=== PATIENT | male | born 1955 | race Caucasian/White ===

== ENCOUNTER 2016-04-07 09:54 | Inpatient (IN) | payer MEDICARE ==
[2016-04-07] VITALS (16 sets, daily range): BP systolic 111–152; BP diastolic 75–99; BMI 18.9
[~2016-04-07] VITALS: Ht 188 cm; Wt 69.0 kg
[~2016-04-07 09:54] MED LIST: COREG25 MG PO; CYCLOBENZAPRINE10 MG PO; HYDRALAZINE HCL50 MG PO; LASIX40 MG PO; LIPITOR80 MG PO; LOTRISONE CREAM45 GM TOPICAL; NORVASC10 MG PO; PHOSLO667 MG PO; SENNA LAXATIVE8.6 MG PO; SPIRIVA18 MCG INH; SYMBICORT 16010.2 GM INH
--- NOTE | 2016-04-07 11:20 | NUR ---
REC'D INTO ROOM 2302 FROM AMBULANCE FROM [place]. HOOKED UP TO CM. HR 98 NS. BP 149/92. SATTING 94% ON RA.NO DISTRESS.
--- NOTE | 2016-04-07 11:57 | NUR ---
RIGHT FOREARM PIV.SL.
[2016-04-07 12:26] LABS: BASOPHILS 0.4 % (0.0-2.0); EOSINOPHILS 1.2 % (0-7); HEMATOCRIT 27.7 % (42.0-54.0); HEMOGLOBIN 8.5 g/dL (13.5-17.5); IMMATURE GRANULOCYTES 0.4 % (0-5); LYMPHOCYTES 5.5 % (15-50); MCH 34.1 pg (26.0-34.0); MCHC 30.7 g/dL (31.0-37.0); MCV 111.2 fL (80.0-100.0); MEAN PLATELET VOLUME 10.5 fL (7.4-10.4); MONOCYTES 10.1 % (2-11); NEUTROPHILS 82.4 % (40-80); PLATELET COUNT 191 10x3/uL (130-400); RBC 2.49 10x6/uL (4.20-6.10); RDW 20.5 % (11.5-14.5); WBC 11.2 10x3/uL (4.8-10.8)
--- NOTE | 2016-04-07 12:36 | NUR ---
RESTING WITH EYES CLOSED. VSS. NO S/S OF ACTIVE GI BLEED.
--- NOTE | 2016-04-07 12:39 | NUR ---
AROUSES PROPERLY TO VOICE. LET UPPER ARM A/V FISTULA. THRILL AND BRUIT PRESENT. CD&I. SCD'S ARE ON.
[2016-04-07 13:00] LABS: ALBUMIN 2.6 g/dL (3.4-5.0); ANION GAP 17.3 mmol/L (8-16); BILIRUBIN - TOTAL 1.2 mg/dL (0.2-1.3); CALCIUM 10.2 mg/dL (8.5-10.1); CARBON DIOXIDE 27.2 mmol/L (21.0-32.0); CREATININE - SERUM 6.7 mg/dL (0.6-1.3); PHOSPHOROUS 3.7 mg/dL (2.5-4.9); PROTEIN - SERUM 5.9 g/dL (6.4-8.2)
[2016-04-07 13:01] LABS: POTASSIUM - SERUM 6.5 mmol/L (3.5-5.1)
--- NOTE | 2016-04-07 13:30 | NUR ---
C/O ITCHING. BENADRYL GIVEN.
[2016-04-07 13:33] LABS: HEMATOCRIT 25.5 % (42.0-54.0); HEMOGLOBIN 7.9 g/dL (13.5-17.5)
--- NOTE | 2016-04-07 16:17 | NUR ---
REC'D REPORT ON PT AND RESUMED WITH POC. PT RESTING IN BED, DENIES NEEDS AT THIS TIME. HD AT BEDSIDE IN PROGRESS.
--- NOTE | 2016-04-07 16:17 | NUR ---
REPORT GAVE TO MARLIN RAMOS RN AND SHE ASSUMED CARE.
--- NOTE | 2016-04-07 17:40 | NUR ---
CONSENT OBTAINED VIA PT.
--- NOTE | 2016-04-07 19:40 | NUR ---
RECEIVED PATIENT AWAKE IN BED WATCHING TV, ASSESSMENT COMPLETE PER FLOWSHEET. PATIENT IS AO X4, DEMEANOR IS PLEASANT. EYES PERRLA @ 3MM WITH BRISK RESPONSE, SCLERA IS WHITE. ORAL/NASAL MUCOSA IS MOIST AND INTACT, TONGUE IS MIDLINE. S1/S2 NOTED WITH PATIENT NSR ON TELEMETRY, RATE IS RYTHMIC AND REGULAR. LUNG SOUNDS ARE CLEAR WITH EXPIRATORY WHEEZE NOTED BILATERAL UPPER AND DIMINISHED LOWER, BREATHING IS EVEN AND EFFORTLESS ON ROOM AIR. ABDOMEN IS SOFT AND NON-TENDER, BOWEL SOUNDS ACTIVE X4. PATIENT IS CURRENTLY ANURIC WITH NO OUTPUT TODAY, PATIENT ABLE TO USE BEDPAN/COMMODE TO VOID. ALL PULSES PALPABLE, PATIENT HAS FISTULA NOTED IN L A/C WITH THRILL/BRILL NOTED. WELDING TECHNICIAN/PEDAL STRENGTH IS EQUAL AND BILATERAL, CAP REFILL <3 SEC. PATIENT STATES HE HAS "5 DEGENERATIVE DISKS" LOCATED UPPER CERVICAL/THORACIC VERTEBRAE, C/O CHRONIC PAIN IN AREA. PAIN RATED 2/10 CURRENTLY, NO MEDS NEEDED AT THIS TIME. PATIENT DENIES OTHER NEEDS AT THIS TIME, ALL VSS AND WILL CONTINUE TO MONITOR.
[2016-04-07 21:47] LABS: HEMATOCRIT 25.7 % (42.0-54.0); HEMOGLOBIN 7.9 g/dL (13.5-17.5)
--- NOTE | 2016-04-07 22:10 | NUR ---
CALLED DR OVIEDO WITH H&H RESULTS PER REQUEST, ORDERS GIVEN TO TRANFUSE 1 UNIT PRBC FOR RESULT OF 11/25. ORDER READ BACK AND CONFIRMED, WAITING FOR BLOOD BANK TO NOTIFY WHEN READY.
--- NOTE | 2016-04-07 23:00 | NUR ---
REASSESSMENT COMPLETE PER FLOWSHEET, PATIENT RESTING IN BED WITH EYES CLOSED. BREATHING IS EVEN AND UNLABORED, OXYGEN SAT 94% ON ROOM AIR. PATIENT HAS SMALL SCABS/SORES ALL OVER BODY, C/O PAIN IN NECK FROM DEGENERATIVE VERTEBRAE. PATIENT HAS NO OUTPUT FOR THE DAY, NO C/O OF BOWEL/BLADDER PAIN OR DISCOMFORT. PATIENT DENIES FURTHER NEEDS AT THIS TIME, WILL CONTINUE TO MONITOR.
[2016-04-08] VITALS (22 sets, daily range): BP systolic 116–152; BP diastolic 66–91; Ht 188 cm; Wt 69.0 kg
--- NOTE | 2016-04-08 01:50 | NUR ---
PRBC TRANSFUSION STARTED, PATIENT AFEBRILE AND ALL VSS. PATIENT DENIES PAIN OR OTHER NEEDS AT THIS TIME, WILL CONTINUE TO MONITOR.
--- NOTE | 2016-04-08 03:00 | NUR ---
REASSESSMENT COMPLETE PER FLOWSHEET, PATIENT RESTING IN BED WITH EYES OPEN. BREATHING IS EVEN AND UNLABORED, OXYGEN SAT IS 94% ON RA. PATIENT RECEIVING 1 UNIT PRBC TRANDUSING, NO C/O PAIN OR FEBRILE REACTION. PATIENT HAS BEEN NPO SINCE MIDNIGHT, STATES "CAN'T WAIT TILL I GET REAL FOOD". PATIENT DENIES PAIN OR OTHER NEEDS AT THIS TIME, ALL VSS AND WILL CONTINUE TO MONITOR.
--- NOTE | 2016-04-08 05:10 | NUR ---
PRBC TRANSFUSION COMPLETE, PATIENT IS AFEBRILE AND NO C/O PAIN. ALL VSS AND WILL CONTINUE TO MONITOR FOR DELAYED REACTION.
[2016-04-08 06:04] LABS: BASOPHILS 0.5 % (0.0-2.0); EOSINOPHILS 2.2 % (0-7); HEMOGLOBIN 8.5 g/dL (13.5-17.5); IMMATURE GRANULOCYTES 0.2 % (0-5); LYMPHOCYTES 8.9 % (15-50); MCH 33.2 pg (26.0-34.0); MCHC 31.5 g/dL (31.0-37.0); MEAN PLATELET VOLUME 10.2 fL (7.4-10.4); MONOCYTES 9.5 % (2-11); NEUTROPHILS 78.7 % (40-80); PLATELET COUNT 157 10x3/uL (130-400); RBC 2.56 10x6/uL (4.20-6.10); RDW 21.4 % (11.5-14.5); WBC 9.2 10x3/uL (4.8-10.8)
--- NOTE | 2016-04-08 06:10 | NUR ---
PATIENT C/O NAUSEA, PRN ZOFRAN GIVEN IV. NO DISCOMFORT OR PAIN NOTED, ALL VSS AND WILL CONTINUE TO MONITOR.
[2016-04-08 06:12] LABS: INR 0.96 (0.85-1.17); PROTIME 12.6 SECONDS (11.6-15.0)
[2016-04-08 06:29] LABS: MCV 105.5 fL (80.0-100.0)
[2016-04-08 06:39] LABS: % SATURATION 96 % (15-55); IRON 232 ug/dl (35-150); TOTAL IRON BIND CAPACITY 240 ug/dl (260-445)
[2016-04-08 06:41] LABS: UNSAT IRON BIND CAPACITY 8 ug/dl (150-375)
[2016-04-08 06:47] LABS: ALBUMIN 2.4 g/dL (3.4-5.0); ANION GAP 17.9 mmol/L (8-16); BILIRUBIN - TOTAL 1.3 mg/dL (0.2-1.3); CARBON DIOXIDE 25.8 mmol/L (21.0-32.0); CREATININE - SERUM 5.6 mg/dL (0.6-1.3); POTASSIUM - SERUM 5.7 mmol/L (3.5-5.1)
--- NOTE | 2016-04-08 09:10 | NUR ---
SCD'S REMOVED PER PATIENT REQUEST.
--- NOTE | 2016-04-08 09:15 | NUR ---
MORNING MEDICATION PROVIDED WITH A SIP OF WATER.
--- NOTE | 2016-04-08 11:15 | NUR ---
PT C/O ITCHING AND REQUESTED BENADRYL. IV BENADRYL GIVEN.
--- NOTE | 2016-04-08 12:18 | NUR ---
PT C/O PAIN IN HIS BACK AND HIS NECK. WANTS A SPINE DOCTOR OR A NEUROLOGIST. SAYS HE HAS SEEN GYPSY IN THE PAST. DOES NOT CURRENTLY SEE SOMEONE REGULARLY FOR HIS PAIN.
[2016-04-08 13:32] LABS: HEMATOCRIT 26.7 % (42.0-54.0); HEMOGLOBIN 8.4 g/dL (13.5-17.5)
--- NOTE | 2016-04-08 13:50 | NUR ---
SPOKE WITH DR CANTU. IF PT EGD LATER COMES BACK OK, AND GI IS COMFORTABLE WITH PATIENT MOVING TO FLOOR, HE IS OK FOR PT TO MOVE TO FLOOR.
--- NOTE | 2016-04-08 13:52 | NUR ---
PT BROUGHT UP SMALL CARRY-ON SIZE SUITCASE WITH PT BELONGINGS IN IT. NO MEDICATIONS FOUND IN IT, BUT 2 PACKS OF UNOPENED GREEN LABEL PALL MALL CIGS FOUND. PT LABEL PLACED ON PACKS AND THEN LOCKED UP IN PATIENT'S MEDICATION CASSETTE. PT WAS MADE AWARE THEY WERE REMOVED FROM HIS BELONGINGS.
--- NOTE | 2016-04-08 16:48 | NUR ---
PT OFF FLOOR TO HAVE EGD.
--- NOTE | 2016-04-08 18:40 | NUR ---
DIALYSIS NURSE HERE TO DO DIALYSIS ON PT. PT STILL IN GI LAB.
--- NOTE | 2016-04-08 19:07 | NUR ---
PT RETURNED TO ROOM FROM GI LAB.
--- NOTE | 2016-04-08 19:30 | NUR ---
RECIEVED PATIENT RETURNED FROM EGD, PATIENT IS SLIGHTLY DAZED AND A LITTLE LETHARGIC. ASSESSMENT COMPLETED PER FLOWSHEET, PATIENT IS AO X4, PATIENT IS LETHARGIC BUT ANSWERS APPROPRIATELY. EYES PERRLA @ 3MM WITH BRISK RESPONSE, SCLERA IS WHITE. PATIENT OXYGEN SAT IS 96% ON 2L VIA NC, ORAL/NASAL MUCOSA IS MOIST AND INTACT. S1/S2 NOTED WITH PATIENT NSR ON TELEMETRY, RATE IS RYTHMIC AND REGULAR. LUNG SOUNDS CLEAR BILATERAL UPPER WITH SLIGHTLY DIMINISHED LOWER, BREATHING IS EVEN AND EFFORTLESS. ABDOMEN IS ROUND AND SOFT, BOWEL SOUNDS ACTIVE X4. PATIENT IS ANURIC BUT ABLE TO VOID INTO URINAL, NO SWELLING OR REDNESS NOTED. ALL PULSES PALPBALE WITH NO WEAKNESS NOTED IN EXTREMITIES. PATIENT HAS A/V FISTULA FOR HD NOTED IN L A/C, BRUIT AND THRILL NOTED. 20G PIV LOCATED R FOREARM, PATENT WITH FLUIDS INFUSING. PATIENT STATES THAT "HE IS STARVING", SANDWICH TRAY PROVIDED. PATIENT CURRENTLY UNDERGOING DIALYSIS, STARTED 1944. PATIENT DENIES PAIN OR OTHER NEEDS AT THIS TIME, ALL VSS AND WILL CONTINUE TO MONITOR.
--- NOTE | 2016-04-08 22:58 | NUR ---
REASSESSMENT COMPLETE PER FLOWSHEET, PATIENT RESTING IN BED WITH EYES CLOSED. DIALYSIS JUST COMPLETED, 4L OF FLUID REMOVED & 43.8 L OF BLOOD CYCLED. ENDING VITALS HR-89, BP-116/72, R-16, T-97.8. BREATHING IS EVEN AND EFFORTLESS, OXYGEN SAT IS 98% ON 2L VIA NC. PATIENT IS "EXHAUSTED" AFTER DIALYSIS, NO FURTHER NEEDS AT THIS TIME. ALL VSS AND WILL CONTINUE TO MONITOR.
[2016-04-09] VITALS (16 sets, daily range): BP systolic 110–141; BP diastolic 59–85
--- NOTE | 2016-04-09 01:00 | NUR ---
PATIENT RESTING IN BED WITH EYES OPEN, PATIENT STATED HE WAS HUNGRY AND GIVEN SANDWICH TRAY. BEDSIDE COMMODE PLACED IN PATIENT ROOM, PATIENT ABLE TO AMBULATE WITHOUT ASSISTANCE. DENIES PAIN OR OTHER NEEDS AT THIS TIME, ALL VSS AND WILL CONTINUE TO MONITOR.
--- NOTE | 2016-04-09 03:01 | NUR ---
REASSESSMENT COMPLETE PER FLOWSHEET, PATIENT RESTING IN BED WITH EYES CLOSED. PATIENT WAS ABLE TO AMBULATE TO CHAIR AND BACK TO BED ON OWN, GAIT IS UPRIGHT AND STEADY. BREATHING IS EVEN AND EFFORTLESS, OXYGEN AT IS 94 % ON 2L VIA NC. PATIENT DENIES PAIN OR OTHER NEEDS AT THIS TIME, ALL VSS AND WILL CONTINUE TO MONITOR.
--- NOTE | 2016-04-09 05:10 | NUR ---
PATIENT RESTING IN BED WITH EYES CLOSED, BREATHING IS EVEN AND EFFORTLESS. PATIENT DENIES PAIN OR OTHER NEEDS AT THIS TIME, STATES HE "JUST NEEDS TO SLEEP". ALL VSS AND WILL CONTINUE TO MONITOR.
[2016-04-09 07:08] LABS: HEMATOCRIT 28.8 % (42.0-54.0)
--- NOTE | 2016-04-09 07:33 | NUR ---
SHIFT ASSESSMENT COMPLETE. SEE FLOWSHEET FOR FINDINGS. PT IS AWAKE, SITTING UP IN BED EATING BREAKFAST. VOICES NO COMPLAINTS OTHER THAN WANTING TO GET OUT OF ICU. PT IS ON ROOM AIR. NO SCD'S IN USE.
--- NOTE | 2016-04-09 07:53 | NUR ---
CALLED DR CANTU AFTER READING HIS NOTE THIS MORNING. NO ORDER IN FOR TRANSFER TO FLOOR NOTED. ALSO NOTE MENTIONS NO LABS TODAY RECEIVED. ASKED HIM IF HE WANTED LABS DRAWN, THERE WAS AND H&H DONE THIS MORNING. REVIEWED H&H VALUES, NO NEED FOR ADDITIONAL LABS AT THIS TIME OK TO PUT IN ORDER FOR TRANSFER.
[2016-04-09 08:21] LABS: ALPHA FETOPROTEIN -(TUMOR MRK) 6.1 ng/mL (0.0-8.3)
--- NOTE | 2016-04-09 09:05 | NUR ---
PT C/O NOSE BLEEDING, LEFT NARE. TISSUE PROVIDED, PRESSURE HELD. BLEEDING SUBSIDED WITHIN A COUPLE OF MINUTES.
--- NOTE | 2016-04-09 10:22 | NUR ---
PT RESTING IN BED WATCHING TELEVISION. AWAITING TRANSFER TO FLOOR.
--- NOTE | 2016-04-09 11:45 | NUR ---
PT C/O NAUSEA. ZOFRAN GIVEN. ASKED WHY NOT PHENERGAN. TOLD HIM WE DON'T HAVE IT ON HIS ORDER AND CAN'T USE IT. WANTED TO KNOW WHAT IS GIVEN FOR PAIN THEN WITH ZOFRAN. TOLD HIM NOTHING. HE THEN STARTS HEAVING AND ACTING LIKE HE IS GOING TO THROW UP AND SPITS IN TRASH CAN I LEAVE ROOM. NO THROWING UP INVOLVEMENT AT THIS TIME.
--- NOTE | 2016-04-09 11:56 | NUR ---
WALKED BY ROOM TO CHECK ON PATIENT. IS BACK TO EATING ON HIS HAMBURGER. NO DISTRESS NOTED.
--- NOTE | 2016-04-09 12:15 | NUR ---
PT NOW ASKING FOR PAIN MEDICATION. HAS NONE ON HIS EMAR. SAYS HIS STOMACH HURTS.
--- NOTE | 2016-04-09 12:57 | NUR ---
SPOKE WITH DR CANTU. ORDERS GIVEN FOR PHENERGAN AND BUPRENEX
--- NOTE | 2016-04-09 13:06 | NUR ---
PT GIVEN PHENERGAN PO AND BUPRENEX. PT YELLING OUT AND 'HOWLING' ASKED HIM TO PLEASE CONTAIN HIS NOISE. APOLOGIZES AND ATTEMPTS TO REDUCE NOISE. HR 87, BP 127/74. SECOND BP READING 104/84.
--- NOTE | 2016-04-09 13:12 | NUR ---
PT STILL YELLING OUT. SAYS MEDICATION DID NOT HELP. EXPLAINED TO HIM IT WAS NOT GOING TO BE IMMEDIATE RESULTS. ASKED HIM AGAIN TO STOP YELLING OUT THAT IT IS DISTURBING THE OTHER PATIENTS.
--- NOTE | 2016-04-09 13:25 | NUR ---
NO MORE YELLING. PT RESTING ON RIGHT SIDE. HR 84. RESPIRATIONS EVEN. EYES CLOSED
[2016-04-09 13:34] LABS: HEMATOCRIT 27.3 % (42.0-54.0); HEMOGLOBIN 8.6 g/dL (13.5-17.5)
--- NOTE | 2016-04-09 13:47 | NUR ---
PT SITTING UP IN BED TALKING ON CELL PHONE AT THIS TIME. VOICE IS CALM. NO DISTRESS NOTED. NO COMPLAINTS VOICED
--- NOTE | 2016-04-09 14:06 | NUR ---
REPORT CALLED TO RECEIVING RN. PT 2 PACKS OF PALL MALL CIGARETTES GIVEN BACK TO HIM. WITNESSED BY JORDAN MARIE.
[2016-04-09 14:23] LABS: FOLATE (FOLIC ACID) - SERUM 14.5 ng/mL (>3.0)
--- NOTE | 2016-04-09 14:26 | NUR ---
PT TRANSFERRED TO [facility] FLOOR ROOM 5076. OFFERED TO CALL TO UPDATE ON MOVE, PT SAID HE HAD ALREADY CALLED HER TO LET HER KNOW THAT HE WAS MOVING.
--- NOTE | 2016-04-09 14:40 | NUR ---
REC'D PT FROM ICU NURSE HALLE. PT IS ALERT AND ORIENTED. VSS. APPLIED NC @2L. ORIENTED PT TO ROOM AND FLOOR. PT DENIES ANY QUESTIONS OR NEEDS. CL IN REACH. WILL CTM.
--- NOTE | 2016-04-09 20:28 | NUR ---
HS MEDS GIVEN WITH FRESH ICE WATER, PT ASKING WHY HE ISNT ALLOWED TO GO OUT SIDE PT STATES THAT WE ARE HOLDING HIM HOSTAGE AND AGAINST HIS WILL. EXPAININED TO PT THAT WE ARE NOT FORCING HIM TO STAY, BUT THAT WE SUGGEST TO ALL PTS THAT THEY DO NOT GO OUT TO SMOKE WHILE THEY ARE A PT HERE, WE ARE A NON SMOKING FACILITY AND THE PTS CANT BE OBSERVED IF THEY LEAVE THE GROUNDS TO SMOKE AND IT BECOMES A SAFETY ISSUE. OFFERED TO CALL AND GET PT A NICOTINE PATCH, PT DECLINED STATING THAT IT WILL ONLY MAKE HIM SICKER. WILL CONT TO MONITOR.
[2016-04-09 21:12] LABS: HEMATOCRIT 30.9 % (42.0-54.0); HEMOGLOBIN 9.7 g/dL (13.5-17.5)
[2016-04-10 01:22] VITALS: BP 129/75
--- NOTE | 2016-04-10 01:52 | NUR ---
BUPRENEX 0.1 MG AND BENADRYL 25 MG GIVEN FOR C/O PAIN AND ITCHING.
--- NOTE | 2016-04-10 03:03 | NUR ---
RESTING WITH EYES CLOSED, RESPERATIONS EVEN, NO S/S DISTRESS NOTED.
[2016-04-10 05:51] LABS: BASOPHILS 0.7 % (0.0-2.0); EOSINOPHILS 2.1 % (0-7); HEMATOCRIT 30.7 % (42.0-54.0); HEMOGLOBIN 9.5 g/dL (13.5-17.5); IMMATURE GRANULOCYTES 0.1 % (0-5); LYMPHOCYTES 11.2 % (15-50); MCHC 30.9 g/dL (31.0-37.0); MCV 106.6 fL (80.0-100.0); MEAN PLATELET VOLUME 10.6 fL (7.4-10.4); MONOCYTES 6.7 % (2-11); NEUTROPHILS 79.2 % (40-80); PLATELET COUNT 171 10x3/uL (130-400); RBC 2.88 10x6/uL (4.20-6.10); RDW 20.4 % (11.5-14.5)
[2016-04-10 06:19] LABS: CALCIUM 8.4 mg/dL (8.5-10.1); CARBON DIOXIDE 27.9 mmol/L (21.0-32.0); CREATININE - SERUM 6.9 mg/dL (0.6-1.3); PHOSPHOROUS 7.7 mg/dL (2.5-4.9); POTASSIUM - SERUM 4.9 mmol/L (3.5-5.1)
[2016-04-10 06:27] VITALS: BP 118/62
--- NOTE | 2016-04-10 07:47 | NUR ---
RECEIVED PT LYING ON RIGHT SIDE WITH EYES CLOSED RESTING QUIETLY. RESPIRATIONS EVEN, NON-LABORED. NO ACUTE DISTRESS NOTED AT THIS TIME. BED LOW. PHONE AND CALL LIGHT IN REACH. SIDE RAILS UP X2.
[2016-04-10 08:00] VITALS: BP 135/77
--- NOTE | 2016-04-10 08:30 | NUR ---
PT SITTING UP ON SIDE OF THE BED. AAO X3. ASSESSMENT COMPLETE. SALINE LOCK NOTED TO RIGHT FOREARM. RLL LUNG SOUNDS DIMINSHED, EXPIRATORY WHEEZES NOTED TO RUL, RML, LLL, AND TRINIDAD. BOWEL SOUNDS ACTIVE X4 QUADRENTS. PT IS A LEFT ARM RESERVE R/T FISTULA IN UPPER ARM. PT HAS DIALYSIS MWF AND SHOULD HAVE IT DONE TODAY. PT REQUESTS A SPOON AT THIS TIME. DENIES OTHER NEEDS. BED LOW. PHONE AND CALL LIGHT IN REACH. SIDE RAILS UP X2.
--- NOTE | 2016-04-10 09:33 | NUR ---
AM MEDS GIVEN. ADMINISTERED BUPRENORPHINE IVP. FLUSHED SALINE LOCK. PT DENIES NEEDS AT THIS TIME. BED LOW. PHONE AND CALL LIGHT IN REACH. SIDE RAILS UP X2.
--- NOTE | 2016-04-10 11:38 | PRO ---
PATIENT:YOHANA VALENCIA MEDICAL RECORD: [id number] : 55 LOCATION:D.M2 D.2136 ADMISSION DATE: 04/07/16 PROCEDURE PERFORMED BY: KWAME ARROYO MD DATE OF PROCEDURE: 04/08/2016 OBSTETRICS NURSE PRACTITIONER: Kwame Arroyo MD PROCEDURE: EGD with biopsy and cauterization using the gold probe of the duodenal ulcer. INDICATION: The patient is a 60-year-old white male with a reported history of chronic active hepatitis B and C from past IV drug use, past alcohol abuse, coronary artery disease, cardiac arrhythmias with valvular heart disease, status post aortic valve replacement, end-stage renal disease, on hemodialysis, was admitted with hematemesis and melena. He has no past history of any GI bleeding. It is unknown whether he has a cirrhosis or not. Apparently, he had drunk alcohol in 20 years or so. It is also unclear whether he has never had an endoscopy in the past. LABORATORY DATA: Lab on admission revealed a BUN of 75 and creatinine of 6.7. Total bilirubin 1.2, AST 36, ALT 85, alkaline phosphatase 151, and albumin 3.6. White count 11,000, hematocrit 27, MCV of 111, and platelet count 191. B12 and folate levels are pending. He is now for EGD. PREMEDICATION: TIVA for anesthesia. He also received Ancef and gentamicin prophylactically for his heart valve. INSTRUMENT: Olympus video gastroscope. FINDINGS: The endoscope was passed through the oropharynx to the second portion of the duodenum without difficulty. The esophagus was essentially normal other than 1 small 6-7 mm ulceration right at the GE junction, actually just distal to it of unclear etiology, rule out for reflux or possibly even pill esophagitis. This was a small circular ulcer and it had no stigmata of recent bleeding. Also, of note was that there were no esophageal varices. The stomach was entered. It was remarkable for moderate gastritis in the mid body of the stomach, which looked almost like atrophic gastritis, more so than portal hypertensive gastropathy. Biopsies were obtained from this area and from the antrum to rule out H. pylori, atrophic gastritis, etc. There was no blood in the stomach. The duodenum was entered and was in the bulb, it was clear; however, in the second portion of duodenum, there was a definite large 2-cm ulceration on the anterior wall with a definite flat pigmented spot/visible vessel. It was not bleeding at time of endoscopy. I went ahead and cauterized with gold probe and 30 joules with good results. The patient tolerated the procedure well without any immediate complication. IMPRESSION: 1. Large duodenal ulcer with stigmata of recent bleeding in the second portion of the duodenum, now status post cauterization with a gold probe as noted above, rule out Helicobacter pylori infection. 2. Moderate gastritis involving the body of the stomach, rule out chronic atrophic gastritis. PROCEDURE NOTE [id number] YOHANA VALENCIA 3. Small punctate ulcer right at the GE junction or just below it, rule out pill esophagitis versus reflux disease. 4. No evidence of esophageal or gastric varices. 5. Otherwise, normal esophagogastroduodenoscopy. RECOMMENDATIONS: 1. Follow up biopsy results. 2. Absolutely no aspirin or NSAIDs. 3. Protonix 40 mg p.o. b.i.d. to take indefinitely. 4. Advance diet as tolerated. 5. Follow B12 and folate levels. TRANSINT:[id number] Voice Confirmation ID: [id number] DOCUMENT ID: [id number] KWAME ARROYO MD at 1138 CC: MELISSA CANTU MD [id number] DICTATION DATE: 04/08/16 185 ROTARY VENEER MACHINE OPERATOR: 04/09/16 0201 [facility] IN [place] [id number] [place] [id number]
[2016-04-10 11:42] VITALS: BP 123/62
--- NOTE | 2016-04-10 12:33 | NUR ---
PT SITTING UP ON SIDE OF BED TALKING ON CELL PHONE. DENIES NEEDS AT THIS TIME. BED LOW. PHONE AND CALL LIGHT IN REACH. SIDE RAILS UP X2.
--- NOTE | 2016-04-10 13:19 | NUR ---
CASE MANAGEMENT AT BEDSIDE WITH PT. NO NEEDS NOTED AT THIS TIME.
[2016-04-10 13:57] LABS: HEMATOCRIT 31.6 % (42.0-54.0); HEMOGLOBIN 9.8 g/dL (13.5-17.5)
--- NOTE | 2016-04-10 15:06 | NUR ---
ADMINISTERED FLEXERIL PO. PT DENIES NEEDS AT THIS TIME. BED LOW. PHONE AND CALL LIGHT IN REACH. SIDE RAILS UP X2.
[2016-04-10 16:00] VITALS: BP 122/72
--- NOTE | 2016-04-10 16:00 | NUR ---
PT REQUESTS MEDICATION FOR PAIN 11/10. ADMINISTERED BUPRENEX IVP. FLUSHED IV. PT DENIES FURTHER NEEDS. BED LOW. PHONE AND CALL LIGHT IN REACH. SIDE RAILS UP X2.
--- NOTE | 2016-04-10 16:19 | NUR ---
PT RECEIVING DIALYSIS. DENIES NEEDS AT THIS TIME.
--- NOTE | 2016-04-10 16:22 | NUR ---
Patient Name: YOHANA VALENCIA Admission Status: Elective Accout number: [id number] Admission Date: 04-07-2016 : 1955 Admission Diagnosis:HEMATEMESIS Attending: ANEL Current LOS: 3 Anticipated DC Date: 04-11-2016 Planned Disposition: [facility] Facility Primary Insurance: MEDICARE A & B PLANNED EXTERNAL PROVIDER: [place], MEDICARE REHAB BED Discharge Planning Comments: * Is the patient Alert and Oriented? Yes 0 * How many steps to enter\exit or inside your home? 3 0 * PCP DR. MARVA HAQ 0 * Pharmacy [facility] IN [place] OR [facility] 0 * Preadmission Environment Home with Family 0 * ADLs Independent 0 * Equipment [facility] Bed Nebulizer Walker 0 * Other Equipment NO MEDICAL EQUIPMENT PROVIDER PREFERENCE 0 * List name and contact numbers for known caregivers / representatives who currently or will assist patient after discharge: RENITA MARRERO ISAAK, 0 * Community resources currently utilized Other 0 * Please name any agencies selected above. [facility], [facility], [place], M/W/F, 1115AM, MEDICAID TRANSPORT BUS TO AND FROM DIALYSIS 0 * Additional services required to return to the preadmission environment? No 0 * Can the patient safely return to the preadmission environment? Yes 0 * Has this patient been hospitalized within the prior 30 days at any hospital? No 0 CM MET WITH PT IN ROOM TO DISCUSS DISCHARGE PLANNING AND NEEDS. PT REPORTS LIVING AT HOME INDEPENDENTLY WITH HIS ISAAK. PT REPORTS HAVING ALL NEEDED MEDICAL EQUIPMENT AT HOME AND NO MEDICAL EQUIPMENT PROVIDER PREFERENCE. PT HAS NO OUTSIDE SERVICES ASSISTING IN THE HOME. PT GOES TO DIALYSIS IN [place] ON M//F SHCEDULE, TAKES [place]AT BUS. CM DISCUSSED AVAILABILITY OF HOME HEALTH, REHAB SERVICES AND MEDICAL EQUIPMENT. PT STATES HE NEEDS REHAB BEFORE HE GOES HOME AND WANTS A [facility] IN [place] SO THAT HE WILL BE CLOSE TO SERVICES HERE BEFORE GOING HOME. PT REPORTS HE HAS DISCUSSED THIS WITH HIS DIALYSIS CLINIC IN [place] AND TOLD HIM INITIALLY THEY WERE GOING TO HELP BUT HAVE DONE NOTHING. PT CALLED [facility] AND THEY TOLD PT THEY HAVE A BED AND ASKED THAT REFERRAL BE SENT TO THEM FOR SCREENING. PT REPORTS [facility] WILL PICK HIM UP FOR DISCHARGE HOME. IMPORTANT MESSAGE FROM MEDICARE PROVIDED AND EXPLAINED. CHOICE SIGNED FOR ANY NURSING FACILITY IN [place]. CM FAXED REFERRAL TO KRYSTIAN OF [facility], . TRACIE CALLED KRYSTIAN AT [phone], WHO WAS FAMILIAR WITH PT HE HAS CALLED [facility] WHO NOTIFIED HER TO EXPECT THE REFERRAL. CM WAITING ADMISSION DETERMINATION FROM [facility] FOR REHAB SERVICES. Maid Supervisor: Daniel Snow
--- NOTE | 2016-04-10 17:06 | NUR ---
ADMINISTERED PROTONIX PO. DENIES NEEDS AT THIS TIME.
--- NOTE | 2016-04-10 18:22 | NUR ---
PT REFUSED LASIX 80 MG PO. RECEIVING DIALYSIS AT THIS TIME. BED LOW. PHONE AND CALL LIGHT IN REACH. SIDE RAILS UP X2.
--- NOTE | 2016-04-10 18:45 | NUR ---
ZOFRAN GIVEN VIA DIALYSIS TO LEFT UPPER ARM FISTULA FOR NAUSEA. PT DENIES FURTHER NEEDS AT THIS TIME. BED LOW. PHONE AND CALL LIGHT IN REACH. SIDE RAILS UP X2.
--- NOTE | 2016-04-10 19:41 | NUR ---
RECEIVED REPORT, PT IS RECEIVING DIALYSIS IN ROOM, [place] ARM, IV-RFA-SL, 02-2L, PT IS UP AB JAKI, CALL LIGHT IN REACH, BED IS LOW, SRX2, WILL CONTINUE TO MONITOR
[2016-04-10 20:02] VITALS: BP 104/59
[2016-04-10 21:13] LABS: HEMATOCRIT 32.7 % (42.0-54.0); HEMOGLOBIN 10.2 g/dL (13.5-17.5)
[2016-04-11 01:11] VITALS: BP 96/41
[2016-04-11 04:36] VITALS: BP 115/42
--- NOTE | 2016-04-11 05:13 | NUR ---
SLEEPING, BED IS LOW, SRX2, CALL LIGHT IN REACH
[2016-04-11 05:25] LABS: BASOPHILS 0.3 % (0.0-2.0); EOSINOPHILS 0.3 % (0-7); HEMATOCRIT 26.4 % (42.0-54.0); HEMOGLOBIN 8.2 g/dL (13.5-17.5); IMMATURE GRANULOCYTES 0.2 % (0-5); LYMPHOCYTES 5.6 % (15-50); MCH 33.6 pg (26.0-34.0); MCHC 31.1 g/dL (31.0-37.0); MCV 108.2 fL (80.0-100.0); MEAN PLATELET VOLUME 10.9 fL (7.4-10.4); MONOCYTES 6.4 % (2-11); NEUTROPHILS 87.2 % (40-80); PLATELET COUNT 154 10x3/uL (130-400); RBC 2.44 10x6/uL (4.20-6.10); RDW 19.6 % (11.5-14.5)
[2016-04-11 05:26] LABS: WBC 11.8 10x3/uL (4.8-10.8)
[2016-04-11 05:33] LABS: ANION GAP 15.1 mmol/L (8-16); CALCIUM 8.1 mg/dL (8.5-10.1); CARBON DIOXIDE 29.8 mmol/L (21.0-32.0); CREATININE - SERUM 6.2 mg/dL (0.6-1.3); PHOSPHOROUS 6.4 mg/dL (2.5-4.9); POTASSIUM - SERUM 4.9 mmol/L (3.5-5.1)
[2016-04-11 08:00] VITALS: BP 111/54
--- NOTE | 2016-04-11 10:09 | NUR ---
RESP UL ON RA. UP AMBULATING HALLWAY. GAIT STEADY. WILL CONT. PLAN OF CARE.
--- NOTE | 2016-04-11 11:21 | NUR ---
REC'D REPORT FROM FRANK HUFFMAN. ASSUMED CARE FOR THIS PT. INTRODUCED MYSELF TO PT, PT DENIES ANY CURRENT NEEDS. WILL CPOC.
--- NOTE | 2016-04-11 11:49 | NUR ---
INITIATED PTS IVPB VANC INFUSING VIA R.FA PIV WITH PANKAJG CDI AND SWAB CAPS IN USE. PT IS USING TWEEZERS TO PICK AT SCABS ON HIS ARMS AND MAKING THEM BLEED. ENCOURAGED PT TO LEAVE THEM ALONE AND PROVIDED HIM WITH BAND-AIDS TO COVER. PT SITTING UP ON EDGE OF BED AND DENIES ANY FURTHER NEEDS AT THIS TIME. CL IN REACH. BED IN LOWEST, SIDE RAILS X2. WILL CPOC.
[2016-04-11 12:00] VITALS: BP 100/52
[2016-04-11 12:27] LABS: HEMATOCRIT 27.4 % (42.0-54.0); HEMOGLOBIN 8.4 g/dL (13.5-17.5)
--- NOTE | 2016-04-11 12:47 | NUR ---
Patient Name: YOHANA VALENCIA Encounter No: [id number] : 1955 Primary Insurance: MEDICARE A & B Anticipated DC Date: 04-11-2016 Planned Disposition: HOME DCP follow-up note: PT REQUESTED TO SPEAK TO CM AT NURSES STATION; CM WALKED WITH PT BACK TO ROOM AND MET WITH PT THERE. PT REPORTS THAT HE WAS CALLED BY [facility] AND THEY WILL NOT TAKE HIM BECAUSE HE IS INDEPENDENT AND HAS NO SKILLED NEEDS, WHATEVER THAT IS. CM EXPLAINED THAT PT HAS NO THERAPY NEEDS, NO WOUND CARE OR IV MEDICATION NEEDS. PT REPORTS PLAN TO GO HOME AND HE WILL CONTINUE TO "WORK ON THIS THING", STATES THAT HE AND HIS FIANCE ARE OUT OF [place] FOR THE MONTH AND IT IS 110 [address] FROM HIS HOME TO [facility]. CM EXPLAINED THAT CM WILL ATTEMPT TO ARRANGE SCAT TRANSPORT FOR DISCHARGE HOME. PT REPORTS HE RIDES SCAT TO AND FROM DIALYSIS BUT CANNOT ARRANGE DISCHARGE TRANSPORTATION HE HAS TO HAVE 48 HOURS NOTICE. CM EXLAINED THAT IF PT IS DISCHARGED EARLY ON A WEEKDAY, CM CAN CALL AND REQUEST DISCHARGE TRANSPORTATION WITHOUT 48 HOURS NOTICE. PT REPORTED UNDERSTANDING, THANKED CM FOR ASSISTANCE. FOR DISCHARGE HOME, PT WILL NEED TO DISCHARGE ON A WEEKDAY, EARLY POSSIBLE TO ALLOW CM TO ARRANGE MEDICAID "SCAT" TRANSPORTATION FOR PT'S TRANSPORT HOME. SCAT DOES NOT OPERATE ON WEEKENDS. Daniel Snow, CASE MANAGEMENT
--- NOTE | 2016-04-11 13:34 | NUR ---
Nutrition Follow Up: Chart reviewed. Pt is eating 100% of meals on a Regular diet. Wt stable. +BM 04/09/16. Labs noted - BUN, Cr, Phos elevated. Meds noted including Lasix, Phenergan. Pt with excellent po intake at this time. Rec continue current diet. RD will continue to monitor pt progress per policy.
[2016-04-11 16:00] VITALS: BP 93/49
--- NOTE | 2016-04-11 20:00 | NUR ---
PT RESTING IN BED WITH EYES CLOSED. RESPS EVEN/NONLABORED. NO DISTRESS. SALINE LOCK TO RFA. PT SCHEDULED FOR DISCHARGE TOMORROW.
[2016-04-11 21:50] LABS: HEMOGLOBIN 7.8 g/dL (13.5-17.5)
--- NOTE | 2016-04-11 23:14 | NUR ---
HS MEDS GIVEN. PT ALSO GIVEN REQUESTED BENADRYL AND IV BUPRENEX FOR CHRONIC PAIN ISSUES, PLUS HE STATES WHEN HE GETS THE PAIN MEDS, THEN HE ITCHES. WILL MONITOR.
[2016-04-12 00:47] VITALS: BP 115/55
[2016-04-12 04:56] VITALS: BP 121/54
[2016-04-12 05:38] LABS: BASOPHILS 0.3 % (0.0-2.0); EOSINOPHILS 3.4 % (0-7); HEMATOCRIT 28.2 % (42.0-54.0); HEMOGLOBIN 8.6 g/dL (13.5-17.5); IMMATURE GRANULOCYTES 0.1 % (0-5); LYMPHOCYTES 10.2 % (15-50); MCH 33.1 pg (26.0-34.0); MCHC 30.5 g/dL (31.0-37.0); MCV 108.5 fL (80.0-100.0); MEAN PLATELET VOLUME 10.8 fL (7.4-10.4); MONOCYTES 11.9 % (2-11); NEUTROPHILS 74.1 % (40-80)
[2016-04-12 05:45] LABS: PLATELET COUNT 194 10x3/uL (130-400); WBC 7.2 10x3/uL (4.8-10.8)
[2016-04-12 05:58] LABS: ANION GAP 19.9 mmol/L (8-16); CALCIUM 8.2 mg/dL (8.5-10.1); CARBON DIOXIDE 26.7 mmol/L (21.0-32.0); POTASSIUM - SERUM 4.6 mmol/L (3.5-5.1)
[2016-04-12 06:01] LABS: CREATININE - SERUM 8.7 mg/dL (0.6-1.3); PHOSPHOROUS 8.8 mg/dL (2.5-4.9)
[2016-04-12 08:26] VITALS: BP 145/70
--- NOTE | 2016-04-12 11:22 | NUR ---
PT RECIEVING DIALYSIS AT BEDSIDE. DENIES ANY CURRENT PAIN OR NEEDS. CL IN REACH. WILL CTM.
[2016-04-12] MEDS ORDERED: PHENERGAN25 M1 PO (11:47)
[2016-04-12] MEDS ORDERED: PROTONIX40 MG PO (11:48)
[2016-04-12 12:10] VITALS: BP 126/73
--- NOTE | 2016-04-12 13:18 | NUR ---
Mr. Bhandari had bedside hemodialysis today via his left upper arm av fistula from 09 until 1234. Average blood flow was 350 mls/minute. Net fluid removed was 4000 mls. Cramped in calves nfor a while post treatment. Post vital signs were: B/P:125/60, HR:98, Temp:97.4, Resps:20.
--- NOTE | 2016-04-12 14:23 | NUR ---
DISCHARGE TEACHING COMPLETED AND PAPERS SIGNED. REMOVED R.FA PIV WITH CATHETER TIP FULLY INTACT. PT AWAITING RIDE AND DENIES ANY CURRENT NEEDS. WILL CTM.
--- NOTE | 2016-04-12 18:34 | NUR ---
TRANSPORT HERE FOR PT. PT LEAVING NOW. NO FURTHER NEEDS.
--- NOTE | 2016-04-15 07:44 | DS ---
PATIENT:YOHANA VALENCIA :55 MEDICAL RECORD: [id number] DISCHARGE SUMMARY ADMISSION DATE: 04/07/16 DISCHARGE DATE: 04/12/16 DATE OF ADMIT: 04/09/2016 DATE OF DISCHARGE: 04/12/2016 This was greater than 30 minutes I spent on dictation. HOSPITAL COURSE: This is a 60-year-old gentleman that presented with a GI bleed, was admitted to the ICU and had received an EGD for which he was advised to take Protonix twice a day. I had offered to give him blood again today since his hematocrit was 28 as well as vancomycin, both of which he declined. His blood pressure is 145/70, 90% sat, 98 pulse, and 98.1 temperature. He did have a temperature the day before and I wanted to send him on at least an antibiotic orally, which he declined because he said they never do anything good for him. The same with Protonix, but I really advised him to take 40 mg twice a day due to the problems with this EGD, certainly appreciate Dr. Arroyo. He is alert and oriented times 3. Normocephalic and atraumatic. Clear nares. He does have some congestion in his lungs at the bases that are clearing with dialysis today. Abdomen is nontender in all 4 quadrants. No clubbing, cyanosis or edema. He is ambulating the halls frequently during the day and had requested the fpc rehab and unfortunately, he is not able to qualify due to his good physical condition. He indicated that he would like to increase his muscle mass and I do not think that is more need for a GI rather than fpc rehab. There maybe some social issues at his house, that they may have some financial issues and I have asked the mental health case manager to help as much as they can. His hematocrit actually increased from 25 up to 28 on discharge today. Like I said, he is alert and oriented times 3. Meds on discharge are going to be Phenergan 25 mg q.4 hours p.r.n., Protonix 40 mg twice a day, amlodipine 10 mg a day, Lasix 80 b.i.d. on nondialysis days, but he takes on it both days, Flexeril 10 mg t.i.d. He has inhalers, the Tudorza inhaler and fluticasone and salmeterol 2 puffs twice a day and he does have some Lotrisone cream, but I asked him to take the tube home with him, and like I said, his amlodipine is 10 mg once a day. He will follow up with his dialysis as scheduled 3 times a week and continue his fluid restriction and phosphorus restriction as we do not have him on any phosphorus binders, but again, this are medications and multiple medications that he does not desire to take. I asked him to follow his renal diet and his fluid restriction and his last phosphorus was up to 8.8 and will need to be addressed at his dialysis facility and hopefully, on rounds, we can help him bring this number down because it is very important and may be some of the discomfort and itching that he has had from time to time. Stable on discharge with a renal diet and phosphorus restriction and fluid restriction. TRANSINT:[id number] Voice Confirmation ID: [id number] DOCUMENT ID: [id number] DISCHARGE SUMMARY REPORT [id number] YOHANA VALENCIA, MELISSA BULLARD at 0744 CC: [id number] DICTATION DATE: 04/12/16 1152 SCIENTIST PROPAGATOR: 04/12/16 2154 DIS IN 04/12/16 [facility] [address] [place] [address]
[2016-04-15 15:19] LABS: HEPATITIS C ANTIBODY >11.0 (0.0-0.9)
== END 2016-04-12 18:35 | disposition home or self-care (01) | DRG 383 ==
LOC: D.ICU 09:54 → D.M2 11:53 → D.ICU 11:53 → D.M2 04-09 14:20
PROVIDERS: Internal Medicine Gastroenterology; Internal Medicine Nephrology; ADMIT Internal Medicine Nephrology
PROC: 5A1D60Z (ICD-10-PCS; 2016-04-07)
PROC: 0D568ZZ Destruction of Stomach, Via Natural or Artificial Opening Endoscopic (ICD-10-PCS; 2016-04-08)
PROC: 0DB68ZX Excision of Stomach, Via Natural or Artificial Opening Endoscopic, Diagnostic (ICD-10-PCS; principal; 2016-04-08 16:00)
DX: K26.9 Duodenal ulcer, unspecified as acute or chronic, without hemorrhage or perforation (principal); N18.6 End stage renal disease; I12.0 Hypertensive chronic kidney disease with stage 5 chronic kidney disease or end stage renal disease; B18.1 Chronic viral hepatitis B without delta-agent; K92.0 Hematemesis; I25.10 Atherosclerotic heart disease of native coronary artery without angina pectoris; Z99.2 Dependence on renal dialysis; J44.9 Chronic obstructive pulmonary disease, unspecified; D63.1 Anemia in chronic kidney disease; G62.9 Polyneuropathy, unspecified; D50.9 Iron deficiency anemia, unspecified; Z76.5 Malingerer [conscious simulation]; E83.39 Other disorders of phosphorus metabolism; L29.9 Pruritus, unspecified; B18.2 Chronic viral hepatitis C; Z95.2 Presence of prosthetic heart valve; Z91.11 Patient's noncompliance with dietary regimen; Z91.19 Patient's noncompliance with other medical treatment and regimen

== ENCOUNTER 2016-04-14 09:35 | Inpatient (IN) | payer MEDICARE ==
[~2016-04-14] VITALS: Ht 188 cm; Wt 72.7 kg
--- NOTE | ~2016-04-14 | HEMODYNAMI ---
PATIENT:YOHANA VALENCIA MEDICAL RECORD: [id number] : 55 LOCATION:[facility] D.2307 ADMISSION DATE: 04/14/16 Generatedon:04/19/201614:31 Patient name: YOHANA VALENCIA Patient #: [id number] SSN: D OB: 1955 Date of study: 04/19/2016 Page: Of Hemodynamic Procedure Report Patient Data Patient Demographics Procedure consent was obtained First Name: YOHANA Gender: Male Last Name: ERIK : 1955 [facility] Initial: TRACI Age: 60 year(s) Patient #: [id number] Race: Unknown Additional ID: [id number] Contact details [address]: [address] [place] [address] State: [place] City: [place] Zip code: [address] Admission Admission Data Admission Date: 04/14/2016 Admission Time: 11:57 Room #: D.2307 Procedure Procedure Types Cath Procedure Diagnostic Procedure Peripheral Cath Diagnostic Procedure Peripheral vascular Intervention Procedure Description Procedure Date Procedure Date: 04/19/2016 Procedure Start Time: 13:16 Procedure Staff Name Function Mable Munroe RN Nurse Sameera Soni RT Diversional Therapist'S Assistant Sameera Soni RT Monitor Lusi Javed RT Scrub Fransisco Izquierdo MD Performing Physician Aliza Castillo RN Nurse Procedure Data Cath Procedure Fluoroscopy Diagnostic fluoroscopy Total fluoroscopy Time: time: 10.1 min 10.1 min Diagnostic fluoroscopy Total fluoroscopy dose: dose: 672.91 mGy 672.91 mGy Contrast Material Contrast Material Type Amount (ml) Isovue 300 55 Entry Location Entry Primary Successful Side Size Upsize Upsize Entry Closure Succes sful Closure Location (Fr) 1 (Fr) 2 (Fr) Remarks Device Remarks Femoral Right 5 Fr artery Femoral Exoseal artery Diagnostic catheters Device Type Used For End Catheter Placement Merit Impress 5Fr SIM 1 Catheter Procedure Medications Medication Administration Route Dosage Lidocaine 1% added to field 20 Heparin Flush Bag added to field 3 bags (1000units/500ml NS) Hemodynamics Rest Pre Cath Intra NCS Post Cath Vital Signs Time Heart Resp SPO2 NIBP (mmHg) Rhythm Pain Sedation Rate (ipm) (%) Status Level (bpm) 13:01:41 82 29 99 181/76(145) NSR 0 (11) 10(A) , No pain 13:06:08 83 27 99 180/73(113) NSR 0 (11) 10(A) , No pain 13:10:38 83 28 99 168/67(120) NSR 0 (11) 10(A) , No pain 13:15:06 81 26 100 169/62(108) NSR 0 (11) 10(A) , No pain 13:19:30 86 33 92 134/65(104) NSR 0 (11) 10(A) , No pain 13:24:29 87 31 100 Measuring NSR 0 (11) 10(A) , No pain 13:24:46 87 30 100 163/62(93) NSR 0 (11) 10(A) , No pain 13:29:06 92 55 99 156/61(99) NSR 0 (11) 10(A) , No pain 13:33:28 96 32 99 138/59(96) NSR 0 (11) 10(A) , No pain 13:37:48 95 24 99 151/61(91) NSR 0 (11) 10(A) , No pain 13:42:04 92 23 99 144/62(95) NSR 0 (11) 10(A) , No pain 13:46:24 92 23 99 148/61(101) NSR 0 (11) 10(A) , No pain 13:51:23 91 24 99 Measuring NSR 0 (11) 10(A) , No pain 13:51:42 91 24 99 158/66(103) NSR 0 (11) 10(A) , No pain 13:56:04 92 24 99 156/68(107) NSR 0 (11) 10(A) , No pain 14:00:28 97 25 98 166/73(118) NSR 0 (11) 10(A) , No pain 14:05:27 102 26 98 Measuring NSR 0 (11) 10(A) , No pain 14:05:50 103 26 98 184/73(99) NSR 0 (11) 10(A) , No pain 14:10:18 104 27 97 194/77(128) NSR 0 (11) 10(A) , No pain 14:14:50 105 23 98 202/80(132) NSR 0 (11) 10(A) , No pain Medications Time Medication Route Dose Verified Delivered Reason Notes Effe ctiveness by by 13:00:07 Lidocaine 1% added 20ml Aliza Aliza used for to vial Anna Anna procedure field RN RN 13:00:19 Heparin Flush added 3 Aliza Aliza used for Bag to bags Anna Anna procedure (1000units/500ml field RN RN NS) Procedure Log Time Note 12:57:48 Aliza Castillo RN sent for patient. Start room use. 12:57:56 Time tracking: Regular hours 12:58:00 Plan of Care:Hemodynamics will remain stable., Cardiac rhythm will remain stable., Comfort level will be maintained., Respiratory function will remain adequate., Patient/ family verbilizes understanding of procedure., Procedure tolerated without complication., Recovers from procedure without complications.. 12:58:07 Patient received from Other to IR Alert and oriented. Tansferred to table in Supine position. 12:58:22 PT.COME FROM GI LAB WITH ANESTHESIA 12:58:25 Correct patient and procedure confirmed by team. 12:58:25 Warm blankets applied, and maxine hugger turned on for patient comfort. 12:58:27 Signed procedure consent form obtained from patient. 12:58:28 ECG and BP/O2 sat monitors applied to patient. 12:58:30 - 12:58:30 Full Disclosure recording started 12:58:35 H&P Date Dictated: 04/19/2016 Within 30 days and on chart.. 12:58:36 Pre-procedure instructions explained to patient. 12:58:37 Pre-op teaching completed and patient verbalized understanding. 12:58:38 Family in waiting room. 12:58:40 Patient NPO since Midnight. 12:59:03 SEE ANESTHESIA PRE PROCEDURE TIVA NOTE 12:59:05 - 12:59:09 Use device set IR Diagnostic 12:59:11 Sterile Angiographic Pack opened to sterile field. 12:59:12 Acist Manifold opened to sterile field. 12:59:12 Bag Decanter opened to sterile field. 12:59:13 Acist Hand Control opened to sterile field. 12:59:14 Acist Syringe opened to sterile field. 13:00:07 Lidocaine 1% 20ml vial added to field was given by Aliza Castillo RN; used for procedure; 13:00:14 Vital chart was started 13:00:19 Heparin Flush Bag (1000units/500ml NS) 3 bags added to field was given by Aliza Castillo RN; used for procedure; 13:01:29 Right groin area was prepped with chlora-prep and draped in sterile fashion 13:01:32 Sharps counted by scrub and verified by R.N. 13:01:32 Alarms reviewed by R. N. 13:11:56 Physician arrived 13:13:58 --------ALL STOP TIME OUT------ 13:13:59 Final Timeout: patient, procedure, and site verified with staff and physician. All members of the team are in agreement. 13:14:32 Physical assessment completed. ASA score P 4 - A patient with severe systemic disease that is a constant threat to life as per Fransisco Izquierdo MD. 13:14:41 Sedation plan: TIVA Propofol 13:14:49 Procedure started. 13:16:33 Local anesthetic to right femoral artery with Lidocaine 1% by Fransisco Izquierdo MD.INITIAL ACCESS ONLY 13:16:36 Arterial access obtained using ultrasound guidance. 13:18:26 A 5 Fr sheath was inserted into the Right Femoral artery 13:25:43 Copilot Bleedback Control Valve opened to sterile field. 13:25:44 Cook Skyfi Education LabsSON 145cm guide wire opened to sterile field. 13:25:45 Micropuncture VSI 4FR kit opened to sterile field. 13:25:46 TUBING, CONTRAST INJCTN HI PRES opened to sterile field. 13:25:46 St Sanjeev 5FR Sheath opened to sterile field. 13:25:50 A Merit Impress 5Fr SIM 1 Catheter was advanced over the wire and used for . 13:26:18 [place] Sci TRANSEND STEERABLE guide wire opened to sterile field. 13:28:32 Direxion J Microcatheter opened to sterile field. 13:43:12 [place] Sci INTERLOCK [id number] coil opened to sterile field. LOT# [id number] 13:44:43 Penning[place] Sci INTERLOCK 6MM X 20CM coil opened to sterile field. LOT#[id number] 13:49:53 Pennington Sci Choice PT Floppy J 300cm 0.014 guide wi opened to sterile field. 13:53:19 RENEGADE STAIGHT 150CM microcatheter opened to sterile field. 13:55:26 Pennington Sci INTERLOCK 6MM X 20CM coil opened to sterile field.LOT#[id number] 14:04:24 Pennington Sci INTERLOCK [id number] coil opened to sterile field.LOT#[id number] 14:07:58 Cordis 5Fr Exoseal opened to sterile field. 14:08:31 Sheath removed intact; hemostasis achieved with Exoseal to the Femoral artery. 14:08:31 A sheath was inserted into the Femoral artery 14:08:35 Procedure ended.(Physican Out) 14:10:34 Fluoroscopy time 10.10 minutes. 14:10:45 Fluoroscopy dose: 672.91 mGy 14:10:45 Flurop Dose total: 672.91 14:10:52 Contrast amount:Isovue 300 55ml. 14:10:55 Sharps counted by scrub and verified by R.N. 14:10:57 Procedure and supply charges have been captured, reviewed, submitted an d are correct. 14:17:17 Full Disclosure recording stopped Device Usage Item Name Manufacture Quantity Catalog Number Hospital Part Current Min imal Lot# / Charge Number Stock Stock Serial# Code Sterile Cardinal 1 [id number] 609330 464829 5 Angiographic Health Pack Bag Decanter Microtek 1 2001S 443204 26289 842318 5 adaffix Inc. Acist Acist 1 10932 959160 240467 461010 5 Valchemy Inc Acist Hand Acist 1 53861 778707 502750 456745 5 Control Medical Systems Inc Acist Syringe Acist 1 74696 824570 341833 898514 20 Medical Systems Inc Copilot [place] 1 [id number] 179203 963285 998433 5 Bleedback Vascular Control Valve Cook [facility] 1 [id number] 666138 467146 5 [id number] 145cm guide wire Micropuncture VSI VASCULAR 1 7266V 694408 634790 [address] Sanjeev [address] St Sanjeev 1 728238 402978 234017 5 [id number] Sheath TUBING, Merit 1 [id number] 657157 167783 117620 5 CONTRAST Medical INJCTN HI PRES Merit Impress Merit 1 [id number] 582655 382621 371086 5 [id number] 5Fr SIM 1 Medical Catheter Pennington Sci Pen[place]ton 1 [id number] 239920 383798 5 TRANSEND Scientific STEERABLE guide wire Direxion J [place] 1 [id number] 002135 605301 163824 5 Microcatheter Scientific Pennington Sci [place] 4 [id number] 293019 730746 5 INTERLOCK 10 Scientific X 20 coil Pennington Sci [place] 1 [id number] 508722 611572 627494 5 Choice PT Scientific Floppy J 300cm 0.014 guide wi RENEGADE [place] 1 [id number] 933600 535165 5 STAIGHT 150CM Scientific microcatheter Cordis 5Fr Cardinal 1 EX500 476117 956569 828854 10 [id number] [facility] Signature Audit [place] Stage Time Signature Unsigned Intra-Procedure 04/19/2016 [facility] RT 2:22:15 PM RT(R) (R) (CV) 04/19/2016 2:30:22 PM Intra-Procedure 04/19/2016 Sameera Soni 2:31:36 PM RT(R) Signatures Monitor : Sameera Soni RT Signature : Date : Time : [facility] [address] [facility] [address]
[~2016-04-14 09:35] MED LIST changes: +PHENERGAN25 M1 PO; +PROTONIX40 MG PO
[2016-04-14 12:00] VITALS: BP 140/80
[2016-04-14] MEDS ORDERED: PHOSLO667 MG PO (12:21)
--- NOTE | 2016-04-14 12:23 | NUR ---
PATIENT ARRIVED TO UNIT VIA [facility] WITH EMS FROM [facility]. PATIENT RECEIVING BLOOD UPON ADMISSION TO ROOM 2108. PATIENT HAS APPROX 125ML TO INFUSE. 18 GAUGE TO RIGHT FOREARM, PATENT. ALERT/ORIENTED. ABLE TO TRANSFER SELF TO BED FROM [facility]. CALL LIGHT PLACED WITHIN REACH. NO DISTRESS.
[2016-04-14 13:55] LABS: BASOPHILS 0.6 % (0.0-2.0); EOSINOPHILS 2.9 % (0-7); HEMATOCRIT 29.2 % (42.0-54.0); HEMOGLOBIN 9.2 g/dL (13.5-17.5); LYMPHOCYTES 15.9 % (15-50); MCH 31.9 pg (26.0-34.0); MCHC 31.5 g/dL (31.0-37.0); MCV 101.4 fL (80.0-100.0); MEAN PLATELET VOLUME 10.1 fL (7.4-10.4); MONOCYTES 10.2 % (2-11); NEUTROPHILS 70.4 % (40-80); RBC 2.88 10x6/uL (4.20-6.10); RDW 20.2 % (11.5-14.5); WBC 6.2 10x3/uL (4.8-10.8)
[2016-04-14 13:58] LABS: PLATELET COUNT 237 10x3/uL (130-400)
[2016-04-14 14:05] LABS: ANION GAP 17.1 mmol/L (8-16); CALCIUM 8.8 mg/dL (8.5-10.1); CREATININE - SERUM 8.5 mg/dL (0.6-1.3); POTASSIUM - SERUM 5.1 mmol/L (3.5-5.1)
[2016-04-14 15:34] VITALS: BP 140/80
[2016-04-14 16:00] VITALS: BP 130/65
--- NOTE | 2016-04-14 17:16 | NUR ---
MEDICATED FOR NAUSEA AT THIS TIME. CALL LIGHT WITHIN REACH. NO DISTRESS.
--- NOTE | 2016-04-14 19:31 | NUR ---
APPLIQUER ZIGZAG AT BED SIDE TO RECHECK H&H.
[2016-04-14 20:00] VITALS: BP 169/67
[2016-04-14 20:01] LABS: BASOPHILS 0.8 % (0.0-2.0); EOSINOPHILS 2.8 % (0-7); HEMATOCRIT 27.5 % (42.0-54.0); HEMOGLOBIN 8.9 g/dL (13.5-17.5); IMMATURE GRANULOCYTES 0.2 % (0-5); LYMPHOCYTES 14.4 % (15-50); MCH 32.6 pg (26.0-34.0); MCHC 32.4 g/dL (31.0-37.0); MCV 100.7 fL (80.0-100.0); MEAN PLATELET VOLUME 10.5 fL (7.4-10.4); MONOCYTES 10.1 % (2-11); NEUTROPHILS 71.7 % (40-80); PLATELET COUNT 268 10x3/uL (130-400); RBC 2.73 10x6/uL (4.20-6.10); RDW 20.8 % (11.5-14.5); WBC 6.5 10x3/uL (4.8-10.8)
--- NOTE | 2016-04-14 20:24 | NUR ---
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 ORDERS GIVEN TO GET A CBC AND BMP IN AM AND IF NEEDED WILL POSSIBLY TRANFUSE IN DIALYSIS.
[2016-04-15] VITALS: BP 145/73
[2016-04-15 04:00] VITALS: BP 144/81
--- NOTE | 2016-04-15 04:54 | NUR ---
ASSOCIATE DIRECTOR CAREER SERVICES AT BEDSIDE TO OBTAIN VITALS, CALL LIHGT IN REACH. WILL CONTINUE WITH PLAN CARE
[2016-04-15 05:32] LABS: BASOPHILS 0.8 % (0.0-2.0); EOSINOPHILS 3.6 % (0-7); HEMATOCRIT 31.1 % (42.0-54.0); HEMOGLOBIN 9.7 g/dL (13.5-17.5); IMMATURE GRANULOCYTES 0.1 % (0-5); LYMPHOCYTES 15.6 % (15-50); MCH 31.8 pg (26.0-34.0); MCHC 31.2 g/dL (31.0-37.0); MEAN PLATELET VOLUME 10.5 fL (7.4-10.4); NEUTROPHILS 69.9 % (40-80); PLATELET COUNT 316 10x3/uL (130-400); RBC 3.05 10x6/uL (4.20-6.10); RDW 20.6 % (11.5-14.5); WBC 7.7 10x3/uL (4.8-10.8)
[2016-04-15 05:38] LABS: ANION GAP 21.8 mmol/L (8-16); CALCIUM 9.2 mg/dL (8.5-10.1); CARBON DIOXIDE 25.2 mmol/L (21.0-32.0); CREATININE - SERUM 9.1 mg/dL (0.6-1.3)
--- NOTE | 2016-04-15 08:00 | NUR ---
INTRODUCED MYSELF TO PT PRIMARY RN FOR TODAYS SHIFT. PT IS A&O RESTING QUIETLY IN BED. PT IS C/O BEING ON A LIQUID DIET AND NOW DENIES ANY BLOOD IN HIS STOOLS AND STATES "AT HOME IT WAS BLACK AND I FIGURED IT WAS JUST RESIDUAL FROM MY PREVIOUS BLEED" HOWEVER I PERSONALLY DISCHARGED THIS PT ON FRIDAY AND HE STATED HE WASNT HAVING ANY DISCOLOR IN HIS STOOLS. PT OFTEN CHANGES HIS STORIES AND IS OFTEN ATTENTION SEEKING. PT HAS R.FA PIV WITH PANKAJG CDI AND SWAB CAPS IN USE. PT DENIES ANY FURTHER NEEDS AT THIS TIME. CL IN REACH. WILL CTM.
[2016-04-15 08:16] VITALS: BP 139/72
[2016-04-15 10:51] VITALS: Ht 188 cm; Wt 72.7 kg
--- NOTE | 2016-04-15 11:02 | NUR ---
PT RESTING QUIETLY IN BED. DENIES ANY CURRENT PAIN OR NEEDS. CL IN REACH. WILL CTM.
[2016-04-15 11:37] VITALS: BP 139/69
--- NOTE | 2016-04-15 15:39 | NUR ---
Patient Name: YOHANA VALENCIA Admission Status: Elective Accout number: [id number] Admission Date: 04-14-2016 : 1955 Admission Diagnosis: Attending: ANEL Current LOS: 1 Anticipated DC Date: Planned Disposition: Home Primary Insurance: MEDICARE A & B Discharge Planning Comments: * Is the patient Alert and Oriented? Yes 0 * How many steps to enter\exit or inside your home? 3 0 * PCP DR. MARVA HAQ 0 * Pharmacy [facility] [place] [facility] [employer] [facility] 0 * Preadmission Environment Home with Family 0 * ADLs Independent 0 * Equipment [facility] Bed Nebulizer Walker 0 * Other Equipment NO MEDICAL EQUIPMENT PROVIDER PREFERENCE 0 * List name and contact numbers for known caregivers / representatives who currently or will assist patient after discharge: ISAAK GREEN, 0 * Community resources currently utilized Other 0 * Please name any agencies selected above. OUTPATIENT DIALYSIS, [facility], M/W/F, 1115 AM, MEDICAID TRANSPORATION BUS 0 * Additional services required to return to the preadmission environment? No 0 * Can the patient safely return to the preadmission environment? Yes 0 * Has this patient been hospitalized within the prior 30 days at any hospital? Yes 0 CM MET WITH PT IN ROOM TO DISCUSS DISCHARGE PLANNING AND NEEDS. PT REPORTS LIVING AT HOME INDEPENDENTLY WITH HIS FIANCE. PT REPORTS HAVING ALL NEEDED MEDICAL EQUIPEMENT AT HOME, HAS NO MEDICAL EQUIPMENT PROVIDER PREFERNCE. PT HAS NO OUTSIDE SERVICES ASSISTING IN THE HOME. PT ATTENDS DIALYSIS IN [place] ON MWF SCHEDULE AND TAKES MEDICAID BUS TO AND FROM HIS TREATMENTS. CM DISCUSSED AVAILABILITY OF HOME HEALTH, REHAB SERVICES AND MEDICAL EQUIPMENT. PT DENIES DISCHARGE NEEDS REPORTING PLAN TO RETURN HOME AT DISCHARGE. CM ASKED PT ABOUT HIS READMISSION TO THE HOSPITAL AND OBSERVED THAT PT HAD MADE COMMENTS TO STAFF DURING LAST VISIT THAT HE WOULD BE RIGHT BACK IN THE HOSPITAL. PT REPORTS THAT HE IS BLEEDING AND IS NOT MAKING THIS UP TO BE ADMITTED TO THE HOSPITAL. PT STATES HE WILL BE IN THE HOSPITAL FOR A WEEK OR SO UNTIL THEY CAN FIGURE THIS OUT AND GET IT FIXED. CM ASKED PT IF PT INDEED HAS A HOME TO GO TO AT DISCHARGE. PT REPORTS THAT HE DOES AND THAT HE AND HIS FIANCE ARE JUST BROKE BECAUSE SHE BOUGHT A THIRD USED CAR BECAUSE SHE WANTED IT AND NOT BECAUSE SHE NEEDED IT AND USED PT'S TRUCK TITLE FOR COLLATERAL SO THEY HAVE TO MAKE THE PAYMENTS. PT REPORTS HAVING HOUSING, UTILITIES AND FOOD AT HOME. PT DOES NOT KNOW HOW HE WILL GET HOME, HE THINKS SCAT BUS. PT PLANS TO RETURN HOME AT DISCHARGE, DENIES DISCHARGE NEEDS AT THIS TIME; PT WILL NEED TO ARRANGE SCAT TRANSPORATION TO [facility] ON DAY OF DISCHARGE. [facility] TRANSPORTATION NUMBER: [phone]. Quality Assurance Tester: Daniel Snow
--- NOTE | 2016-04-15 15:50 | NUR ---
PT RECIEVING DIALYSIS AT BEDSIDE. RR EVEN AND NONLABORED. PT DENIES ANY CURRENT NEEDS. CL IN REACH. WILL CTM.
[2016-04-15 15:53] VITALS: BP 140/56
--- NOTE | 2016-04-15 18:44 | NUR ---
Mr. Bhandari had bedside hemodialysis today via his left upper arm av fistula from 1517 until 1817. Average blood flow wa 300 mls/minute. Net fluid removed was 3000 mls. Post vital signs were: B/P: 163/72, HR: 94, Temp: 98.0, Resps:16. Used zero heparin.
[2016-04-15 20:00] VITALS: BP 142/42
--- NOTE | 2016-04-15 20:43 | NUR ---
HS MEDS GIVEN, DENIES PAIN OR NEEDS, BED LOW, CL IN REACH. WILL CONT TO MONITOR.
[2016-04-16] VITALS (10 sets, daily range): BP systolic 107–162; BP diastolic 56–87
--- NOTE | 2016-04-16 00:33 | NUR ---
RESTING WITH EYES CLOSED, RESPERATIONS EVEN, NO S/S DISTRESS NOTED.
--- NOTE | 2016-04-16 02:42 | NUR ---
IV TO RIGHT FOREARM SWOLLEN AND PT STATES THAT IT HURTS. IV REMOVED, TIP IN TACT, COVERED WOTH 2X2 AND TAPE. AFTER TWO UNSUCCESSFUL ATTEMTPS AT RESITING IV PT ASKED IF WE CAN JUST WAIT UNTIL IN THE MORNING AND GIVE HIS ARM A REST, STATED THAT HIS ARM IS SORE FROM PREVIOUS ATTEMPTS OF TRYING TO START IVs. INFORMED PT THAT HE NEEDED THE PROTONIX DRIP FOR HIS STOMACH BUT WILL LET HIM REST FOR NOW AND TRY TO RESITE IV AGIAN LATER OR CALL THE PHYSICIAN IN THE MORNING AND TRY TO GET THE PROTONIX CHANGED TO A PILL. 2 JELLOS GIVEN AT PT REQUEST. NO OTHER NEEDS AT THIS TIME.
--- NOTE | 2016-04-16 04:25 | NUR ---
PT LAYING IN BED NO DISTRESS OBSERVED CALL LIGHT IN REACH SRX2 WILL MONITOR
[2016-04-16 05:42] LABS: BASOPHILS 0.6 % (0.0-2.0); EOSINOPHILS 2.6 % (0-7); HEMATOCRIT 27.7 % (42.0-54.0); HEMOGLOBIN 8.8 g/dL (13.5-17.5); IMMATURE GRANULOCYTES 0.3 % (0-5); LYMPHOCYTES 12.3 % (15-50); MCH 32.6 pg (26.0-34.0); MCHC 31.8 g/dL (31.0-37.0); MCV 102.6 fL (80.0-100.0); MEAN PLATELET VOLUME 10.3 fL (7.4-10.4); MONOCYTES 7.1 % (2-11); NEUTROPHILS 77.1 % (40-80); RDW 20.1 % (11.5-14.5); WBC 6.4 10x3/uL (4.8-10.8)
[2016-04-16 06:17] LABS: PLATELET COUNT 233 10x3/uL (130-400)
[2016-04-16 06:33] LABS: ANION GAP 15.3 mmol/L (8-16); CALCIUM 9.2 mg/dL (8.5-10.1); CARBON DIOXIDE 27.3 mmol/L (21.0-32.0); PHOSPHOROUS 6.8 mg/dL (2.5-4.9); POTASSIUM - SERUM 4.6 mmol/L (3.5-5.1)
--- NOTE | 2016-04-16 08:15 | NUR ---
PT RESTING IN BED EATING BREAKFAST PT TOLERATING WELL CALL LIGHT IN REACH NO PROBLEMS WILL MONITER
--- NOTE | 2016-04-16 08:30 | NUR ---
VENOUS ACCESS NURSE TO START IV. SITTING UP ON BEDSIDE. WILL CONTINUE TO MONITOR.
--- NOTE | 2016-04-16 08:35 | NUR ---
IV access-220 gauge intracon inserted in right upper arm. Ximena Deluca RN
--- NOTE | 2016-04-16 09:38 | NUR ---
RESTS WITH EYES CLOSED. IV PATENT. CALL LIGHT IN REACH. WILL CONT. PLAN OF CARE.
--- NOTE | 2016-04-16 12:15 | NUR ---
PT RESTING IN BED WITH EYES OPEN CALL LIGHT IN REACH NO PROBLEMS WILL MONITER
--- NOTE | 2016-04-16 15:16 | NUR ---
IV access-#22 catheter in right hand x 1 attempt. Ximena Deluca RN
--- NOTE | 2016-04-16 16:48 | NUR ---
PT RESTING IN BED DR MAXWELL IN WITH PT NEW ORDERS WILL MONITER
--- NOTE | 2016-04-16 19:47 | NUR ---
Resting quietly in bed. Alert and oriented x4. Two swollen areas noted on right arm, reportedly from old PIV sites. PIV in right hand, no signs of infection or infiltration. Denies pain at this time. Will continue to monitor.
--- NOTE | 2016-04-16 21:30 | NUR ---
Patient's pulse ox on room air is 85%. Put on oxygen @2L/min. Pulse ox 91%.
--- NOTE | 2016-04-16 22:10 | NUR ---
Vomitting dark red-brown blood. Sitting in bathroom with bucket, approx 300mls. Charge Nurse aware.
--- NOTE | 2016-04-16 22:15 | NUR ---
Vital signs taken, TE=057/56, P=109, R=18, Temp 98.0 by axilla. Complains of "burning up". Perspiring ++. Emesis is odorous with clumps and stringy debris.
--- NOTE | 2016-04-16 22:20 | NUR ---
Has had more episodes of vomitting blood, now having diarrhea with jacey blood. 's exchange called. Received call back from LUIS A Cao. Made aware of change in patient's condition. Orders received to transfer patient to ICU.
--- NOTE | 2016-04-16 22:30 | NUR ---
Called report to ICU, to Rama MARIE. Patient is to go to room 2307.
[2016-04-16 22:38] LABS: BASOPHILS 0.8 % (0.0-2.0); EOSINOPHILS 3.1 % (0-7); IMMATURE GRANULOCYTES 0.3 % (0-5); LYMPHOCYTES 24.8 % (15-50); MCH 32.4 pg (26.0-34.0); MCHC 31.3 g/dL (31.0-37.0); MCV 103.4 fL (80.0-100.0); MEAN PLATELET VOLUME 9.6 fL (7.4-10.4); MONOCYTES 9.8 % (2-11); NEUTROPHILS 61.2 % (40-80); PLATELET COUNT 239 10x3/uL (130-400); RBC 2.04 10x6/uL (4.20-6.10); RDW 19.8 % (11.5-14.5); WBC 9.1 10x3/uL (4.8-10.8)
--- NOTE | 2016-04-16 22:40 | NUR ---
PT ARRIVED TO ICU VIA WHEELCHAIR. BP 100/55. HR 104. RR 19. O2 86% ON ROOM AIR; PLACED ON 2L NC SATS INCREASED TO 96%. TEMP 98.2. SCD'S PLACED. RESERVE LEFT ARM.
--- NOTE | 2016-04-16 22:42 | NUR ---
Patient transfered to ICU via wheelchair accompanied by two techs with IV pump, PIV infusing Protonix @10ml/hr.
[2016-04-16 22:45] LABS: HEMATOCRIT 21.1 % (42.0-54.0); HEMOGLOBIN 6.6 g/dL (13.5-17.5)
--- NOTE | 2016-04-16 23:00 | NUR ---
ASSESSMENT COMPLETE. S1S2; DISTANT. RR SHALLOW; DIMINISHED BILATERALLY IN MID AND LOWER LOBES. PIV TO RIGHT WRIST. AAO. PERRLA. PT C/O ABD TENDERNESS AND RIGHT ARM TENDERNESS WITH MOVEMENT OR TOUCH. FISTULA NOTED TO RIGHT UPPER ARM; BRUIT AND THRILL PRESENT. PT MOUTH BLOOD TINGED; STATED WAS FROM VOMITING BLOOD EARLIER. RECEIVED IN REPORT THAT THE VOMIT WAS BLOOD TINGED MIXED WITH DARK BROWN STRINGY CLOT LIKE SUBSTANCE AND THAT PT HAD SOME RECTAL BLEEDING. PT HAS SCABS/SORES AND BRUISING GENERALIZED ALL OVER BODY. ON 2L NC. PROTONIX INFUSING AT 10ML/HR.
--- NOTE | 2016-04-16 23:50 | NUR ---
20GAUGE PIV STARTED IN RIGHT UPPER ARM; FOR BLOOD ADMINISTRATION.
[2016-04-17] VITALS (25 sets, daily range): BP systolic 109–168; BP diastolic 60–94
--- NOTE | 2016-04-17 | NUR ---
PRBC STARTED. VSS. NO S/S OF REACTION NOTED.
--- NOTE | 2016-04-17 02:10 | NUR ---
PRBC STILL INFUSING. NO S/S OF REACTION. WILL CONTINUE TO MONITOR.
--- NOTE | 2016-04-17 03:15 | NUR ---
REASSESSMENT COMPLETE. NO CHANGES FROM PREVIOUS ASSESSMENT. WILL CONTINUE TO MONITOR. SEE FLOWSHEET FOR DETAILS.
--- NOTE | 2016-04-17 03:30 | NUR ---
PRBC INFUSION COMPLETE. VSS. NO SIGNS OF REACTION. WILL CONTINUE TO MONITOR.
[2016-04-17 04:41] LABS: BASOPHILS 0.6 % (0.0-2.0); EOSINOPHILS 2.4 % (0-7); IMMATURE GRANULOCYTES 0.5 % (0-5); LYMPHOCYTES 12.9 % (15-50); MCH 32.3 pg (26.0-34.0); MCHC 32.3 g/dL (31.0-37.0); MEAN PLATELET VOLUME 9.9 fL (7.4-10.4); MONOCYTES 11.7 % (2-11); NEUTROPHILS 71.9 % (40-80); RDW 19.6 % (11.5-14.5)
[2016-04-17 04:49] LABS: HEMATOCRIT 19.8 % (42.0-54.0); HEMOGLOBIN 6.4 g/dL (13.5-17.5); PLATELET COUNT 179 10x3/uL (130-400); RBC 1.98 10x6/uL (4.20-6.10); WBC 6.3 10x3/uL (4.8-10.8)
[2016-04-17 04:57] LABS: ANION GAP 18.4 mmol/L (8-16); CALCIUM 8.8 mg/dL (8.5-10.1); CARBON DIOXIDE 25.7 mmol/L (21.0-32.0); CREATININE - SERUM 8.6 mg/dL (0.6-1.3); PHOSPHOROUS 8.4 mg/dL (2.5-4.9)
--- NOTE | 2016-04-17 05:00 | NUR ---
SPOKE WITH DR. ALBARADO. ORDERS RECEIVED.
[2016-04-17 05:01] LABS: POTASSIUM - SERUM 6.1 mmol/L (3.5-5.1)
--- NOTE | 2016-04-17 05:15 | NUR ---
PRBC STARTED. VSS.
--- NOTE | 2016-04-17 07:00 | NUR ---
PT REPORT REC'D, PT CARE ASSUMED. PT AAO SITTING UP IN BED. NO C/O PAIN. VSS. RIGHT WRIST PIV, RIGHT UPPER ARM PIV CDI. LEFT ARM FISTULA, BRUIT AND THRILL PRESENT. SCABS/SORES, SCRATCHES AND SORES BILAT ARMS. PT ANURIC, 2LNC.SHIFT ASSESSMENT COMPLETED, SEE FLOW SHEET. ROOM FREE OF CLUTTER, CALL LIGHT IN REACH. WILL CONTINUE OT MONITOR PT.
--- NOTE | 2016-04-17 07:15 | NUR ---
PRBC TRANSFUSION COMPLETE. 1 OF 2 PRBC GIVEN.
--- NOTE | 2016-04-17 08:45 | NUR ---
KWAME MARIE WITH DIALYSIS AT THE BEDSIDE.
--- NOTE | 2016-04-17 11:00 | NUR ---
DIALYSIS AT THE BEDSIDE, PT RESTING WITH EYES CLOSED, NO C/O PAIN. VSS. REASSESSMENT COMPLETED, SEE FLOW SHEET. BED LOCKED IN LOWEST POSITION, CALL LIGHT IN REACH, WILL CONTINUE TO MONITOR PT.
--- NOTE | 2016-04-17 12:53 | NUR ---
Nutrition follow-up: Pt now in ICU Diet: Renal PO intake ~75% of meals; pt with nausea, vomiting but refuses per physician to stop eating. labs reviewed +BM Wt: 147# RDN following.
--- NOTE | 2016-04-17 12:53 | NUR ---
Mr. Bhandari reynolds bedside hemodialysis today via his left upper arm av fistula from 927 until 1227. Average blood flow was 350 mls/minute. Transfused one unit of prbc's. The first of the two units was transfused by PHYSICS TECHNICIAN previously. I removed a net of 3000 mls as well as the 350 mls from the unit of prbc's I transfused. I used zero heparin. Post vital signs were: B/P: 137/75, HR: 93, Temp: 97.6, Resps: 18.
--- NOTE | 2016-04-17 13:30 | NUR ---
GER CHEN RN AT THE BEDSIDE, NGT INSERTED TO LEFT NARE WITHOUT DIFFICULTY, LAVAGED 500ML, ZERO BLOODY RETURN. DR. MAXWELL AND DR. LOVE INFORMED, ORDERS TO KEEP NGT IN FOR OBSERVATION.
[2016-04-17 14:16] LABS: HEMATOCRIT 25.2 % (42.0-54.0); HEMOGLOBIN 8.5 g/dL (13.5-17.5)
--- NOTE | 2016-04-17 15:00 | NUR ---
PT RESTING WITH EYES CLOSED, NO C/O PAIN. VSS. REASSESSMENT COMPLETED, SEE FLOW SHEET. ROOM FREE OF CLUTTER, CALL LIGHT IN REACH, WILL CONTINUE TO MONITOR PT.
--- NOTE | 2016-04-17 15:11 | NUR ---
CALLED DR. BRAN, INFORMED HIM OF LAVAGE, NO BLEEDING PRESENT, ZERO BLOOD RETURNED. "KEEP NGT IN PLACE, WE WILL JUST OBSERVE PT."
[2016-04-17 16:54] LABS: HEMATOCRIT 24.8 % (42.0-54.0); HEMOGLOBIN 8.2 g/dL (13.5-17.5)
--- NOTE | 2016-04-17 19:45 | NUR ---
ASSESSMENT COMPLETE. S1S2. RR UNLABORED; CLEAR BILATERALLY IN UPPER LOBES; DIMINISHED BILATERALLY IN LOWER LOBES. AAO. PERRLA. FISTULA TO LEFT ARM; LEFT ARM RESERVE. NGT IN PLACE. ANURIC. SCD IN PLACE. PIV TO RIGHT WRIST; RIGHT UPPER ARM; BOTH PATENT.
--- NOTE | 2016-04-17 20:50 | NUR ---
PT C/O PAIN. PRN PAIN MED GIVEN PER ORDERS. SEE EMAR FOR DETAILS.
--- NOTE | 2016-04-17 23:05 | NUR ---
REASSESSMENT COMPLETE. NO CHANGES FROM PREVIOUS ASSESSMENT. WILL CONTINUE TO MONITOR.
[2016-04-18] VITALS (23 sets, daily range): BP systolic 122–188; BP diastolic 56–97
[2016-04-18 01:14] LABS: HEMOGLOBIN 7.8 g/dL (13.5-17.5)
--- NOTE | 2016-04-18 02:11 | NUR ---
PT RESTING; EYES CLOSED. VSS. CALL LIGHT IN REACH. NO DISTRESS NOTED. WILL CONTINUE TO MONITOR.
--- NOTE | 2016-04-18 03:01 | NUR ---
HCT 23. PER ORDERS 2 PRBC TO BE GIVEN. 1 OF 2 PRBC STARTED. VSS. WILL CONTINUE TO MONITOR.
--- NOTE | 2016-04-18 03:20 | NUR ---
REASSESSMENT COMPLETE. NO CHANGES FROM PREVIOUS ASSESSMENT.
--- NOTE | 2016-04-18 04:45 | NUR ---
1ST UNIT OF PRBC COMPLETE.
[2016-04-18 04:48] LABS: BASOPHILS 1.1 % (0.0-2.0); EOSINOPHILS 3.8 % (0-7); HEMATOCRIT 24.7 % (42.0-54.0); IMMATURE GRANULOCYTES 0.5 % (0-5); LYMPHOCYTES 13.8 % (15-50); MCHC 32.4 g/dL (31.0-37.0); MONOCYTES 12.6 % (2-11); NEUTROPHILS 68.2 % (40-80); PLATELET COUNT 186 10x3/uL (130-400); RDW 20.6 % (11.5-14.5); WBC 6.4 10x3/uL (4.8-10.8)
[2016-04-18 04:54] LABS: MCV 95.7 fL (80.0-100.0); RBC 2.58 10x6/uL (4.20-6.10)
--- NOTE | 2016-04-18 05:00 | NUR ---
2ND UNIT OF 2 PRBC STARTED. VSS.
[2016-04-18 05:06] LABS: ANION GAP 15.5 mmol/L (8-16); CALCIUM 9.2 mg/dL (8.5-10.1); CARBON DIOXIDE 28.7 mmol/L (21.0-32.0); POTASSIUM - SERUM 5.2 mmol/L (3.5-5.1)
[2016-04-18 05:11] LABS: CREATININE - SERUM 6.1 mg/dL (0.6-1.3); PHOSPHOROUS 6.1 mg/dL (2.5-4.9)
--- NOTE | 2016-04-18 07:00 | NUR ---
PT REPORT REC'D, PT CARE ASSUMED. PT AAOX4 WATCHING TV IN BED. VSS, 2LNC. NGT TO LEFT NARE. RIGHT WRIST PIV, RIGHT FOREARM PIV CDI, SEE FLOW SHEET. PT IS ANURIC, PT WILL GRAB BED ESCOBAR AND SIT ON IT HIMSELF, NO ASSISTANCE NEEDED. RESERVE LEFT ARM, LEFT ARM FISULA, BRUIT AND THRILL PRESENT, CDI. BP ON LEFT LEG. SCD ON RIGHT. PT REFUSES TO WEAR HOSPITAL GOWN. BRUISES, SCRATCHES, SCABS, AND SORES GENERALIZED BODY. SHIFT ASSESSMENT COMPLETED, SEE FLOW SHEET. ROOM FREE OF CLUTTER, CALL LIGHT IN REACH, WILL CONTINUE TO MONITOR PT.
--- NOTE | 2016-04-18 07:10 | NUR ---
PT HAD BLOODY RETURN IN LEFT NARE NGT, PER ORDERS, BLOOD SCAN ORDERED. SRRN
[2016-04-18 08:16] LABS: HEMATOCRIT 26.4 % (42.0-54.0); HEMOGLOBIN 8.7 g/dL (13.5-17.5)
--- NOTE | 2016-04-18 09:00 | NUR ---
PT TRANSPORTED TO BLEED SCAN VIA WHEEL CHAIR WITH EMMA. MAGDALENO
--- NOTE | 2016-04-18 10:00 | NUR ---
Nutrition follow-up: Pt is now NPO with NGT in place due to GI bleed Labs reviewed Wt: 141# +BM PO intake has been good before NGT placed. RDN following.
--- NOTE | 2016-04-18 10:30 | NUR ---
PT RETURNED TO UNIT FROM BLEED SCAN.
--- NOTE | 2016-04-18 11:00 | NUR ---
PT SITTING IN BED WATCHING TV, NO C/O PAIN, VSS. REASSESSMENT COMPLETED, SEE FLOW SHEET. ROOM FREE OF CLUTTER, CALL LIGHT IN REACH, WILL CONTINUE TO MONITOR PT.
--- NOTE | 2016-04-18 11:16 | NUR ---
CALLED 'S TO INFORM OF BLEED SCAN. "PROBABLE EGD TOMORROW" WILL CONTINUE TO MONITOR PT.
--- NOTE | 2016-04-18 15:00 | NUR ---
PT SITTING UP IN BED, NO C/O PAIN, PT C/O NGT "WANTING THIS OUT." INFORMED PT THAT WE NEED IT IN PER DR. LOVE'. REASSESSMENT COMPLETED, SEE FLOW SHEET. ROOM FREE OF CLUTTER, CALL LIGHT IN REACH, WILL CONTINUE TO MONITOR PT.
[2016-04-18 15:40] LABS: HEMATOCRIT 26.3 % (42.0-54.0); HEMOGLOBIN 8.7 g/dL (13.5-17.5)
--- NOTE | 2016-04-18 16:59 | NUR ---
PT RESTING WITH EYES CLOSED, NO C/O PAIN, VSS. ROOM FREE OF CLUTTER, CALL LIGHT IN REACH, WILL CONTINUE TO MONITOR PT.
--- NOTE | 2016-04-18 17:30 | NUR ---
DR. VALLADARES'S AT THE BEDSIDE
--- NOTE | 2016-04-18 17:45 | CN ---
PATIENT NAME:YOHANA AVLENCIA MEDICAL RECORD: [id number] : 55 LOCATION:[facility].2307 ADMIT DATE: 04/14/16 ACCOUNT: [id number] CONSULTING PHYSICIAN: KWAME LOVE MD REFERRING PHYSICIAN: JOSUE BRAND MD DATE OF CONSULTATION: 04/17/2016 Gastroenterology Consultation REFERRING PHYSICIAN: Dr. Josue Brand. HISTORY OF PRESENT ILLNESS: The patient is a 60-year-old white male with a history of both chronic active hepatitis B and C, history of IV drug abuse, end-stage renal disease on hemodialysis, hypertension, coronary artery disease, CHF, cerebrovascular disease, COPD and valvular heart disease, status post aortic valve replacement, who basically was readmitted with apparent recurrent GI bleeding. He was just in the hospital about 10 days ago with the exact same presentation. That led to an EGD on 04/08/2016, which revealed a large duodenal ulcer with stigmata of recent bleeding on the second portion of the duodenum, which was cauterized with gold probe. He also had moderate gastritis, a small punctate ulcer at the GE junction, but otherwise normal exam. Biopsies were negative for H. pylori. He had no evidence of esophageal or gastric varices. He had no further bleeding after the endoscopy and was discharged home. However, he was readmitted yesterday with this similar presentation. He is not compliant. The patient cannot tell if he took his PPI as directed. In regards to his liver disease, his recent lab work revealed a total bilirubin of 1.2, AST 36, ALT 85, alkaline phosphatase 151, albumin 3.6, MCV of 111, and platelet count 191,000. B12 and folate levels were normal. Hepatitis screen was positive for C antibody. It was also positive for hepatitis B surface antigen positive. He was hepatitis A negative. Hepatitis B core IgM was negative. Urine drug screen was negative. Iron saturation was 96%, serum ferritin was 956. Amylase and lipase are normal. Alpha fetoprotein 6.12. INR was 1. A CT of the abdomen and pelvis done 2 months ago was normal other than constipation and minimal ascites. He also had a small uncomplicated left inguinal hernia. Hematocrit on admission was 20, it is now 25 after a couple units of blood. His BUN is 80 and creatinine is 8. PAST MEDICAL HISTORY: As above. ALLERGIES: ASPIRIN, CODEINE, PREDNISONE, AND TRAMADOL. CURRENT MEDICATIONS: Include Protonix drip, Flexeril, Norvasc, Tudorza inhaler, fluticasone inhaler, and Carafate. FAMILY HISTORY: Unknown. SOCIAL HISTORY: The patient is a longtime smoker. He denies alcohol use. REVIEW OF SYSTEMS: Noncontributory other than HPI. PHYSICAL EXAMINATION: GENERAL: Reveals a chronically ill-appearing white male in minimal distress. VITAL SIGNS: Stable, afebrile. CHEST: Clear. CONSULT REPORT [id number] YOHANA VALENCIA HEART: Regular rate and rhythm. ABDOMEN: Soft and nontender. EXTREMITIES: No edema. LABORATORY DATA: As above. IMPRESSION: 1. Apparent recurrent gastrointestinal bleed of unclear etiology. He has a known duodenal ulcer status post cauterization just several days ago as noted above. Cannot rule out lower gastrointestinal source. It is interesting that he has this history of liver disease as documented with chronic active hepatitis B and C, but no evidence of varices at all. 2. Chronic active hepatitis B. 3. Chronic active hepatitis C infection. RECOMMENDATIONS: 1. NG and lavage until clear. 2. Continue Protonix. 3. Bleeding scan if he shows any evidence of active GI bleeding such as hematochezia or melena. 4. Further endoscopy depending on all the above. 5. Could also consider CT angiogram. TRANSINT:[id number] Voice Confirmation ID: [id number] DOCUMENT ID: [id number] KWAME LOVE MD at 1745 CC: JOSUE BRAND MD [id number] DICTATION DATE: 04/17/161755 CLUTCH OPERATOR: 04/17/166 ADM IN [place] [id number] [place] [id number]
--- NOTE | 2016-04-18 18:00 | NUR ---
LAVAGED PTS NGT, NO BLOODY RETURN, DC'ED NGT PER ORDERS, CLEAR LIQUID DIET GIVEN, PT TOLERTED WELL. WILL CONTINUE TO MONITOR PT.
--- NOTE | 2016-04-18 19:00 | NUR ---
REPORT RECEIVED AND ASSESSMENT COMPLETED. SEE ASSESSMENT FOR DETAILS.
--- NOTE | 2016-04-18 19:01 | NUR ---
PT RESTING WITH EYES CLOSED, VSS WILL CONTINUE TO MONITOR PT.
--- NOTE | 2016-04-18 21:00 | NUR ---
PT PRODUCED 1 LARGE TAR COLORED STOOL. NO OTHER CHANGES AT THIS TIME.
[2016-04-19] VITALS (34 sets, daily range): BP systolic 130–210; BP diastolic 50–105
--- NOTE | 2016-04-19 01:16 | NUR ---
NO CCHANGE IN PT STATUS AT THIS TIME. VSS. WILL MONITOR.
--- NOTE | 2016-04-19 03:00 | NUR ---
REASSESSMENT COMPLETED. SEE FLOWSHEET.
[2016-04-19 03:26] LABS: EOSINOPHILS 4.8 % (0-7); HEMATOCRIT 22.8 % (42.0-54.0); IMMATURE GRANULOCYTES 0.2 % (0-5); LYMPHOCYTES 18.3 % (15-50); MCH 30.9 pg (26.0-34.0); MCHC 32.9 g/dL (31.0-37.0); MCV 93.8 fL (80.0-100.0); MEAN PLATELET VOLUME 9.8 fL (7.4-10.4); MONOCYTES 11.9 % (2-11); NEUTROPHILS 63.8 % (40-80); PLATELET COUNT 170 10x3/uL (130-400); RBC 2.43 10x6/uL (4.20-6.10); RDW 19.5 % (11.5-14.5); WBC 6.3 10x3/uL (4.8-10.8)
[2016-04-19 03:32] LABS: HEMOGLOBIN 7.5 g/dL (13.5-17.5)
[2016-04-19 03:41] LABS: ANION GAP 17.2 mmol/L (8-16); CALCIUM 8.9 mg/dL (8.5-10.1); CARBON DIOXIDE 23.4 mmol/L (21.0-32.0); PHOSPHOROUS 6.6 mg/dL (2.5-4.9); POTASSIUM - SERUM 5.6 mmol/L (3.5-5.1)
[2016-04-19 03:44] LABS: INR 1.05 (0.85-1.17); PROTIME 13.5 SECONDS (11.6-15.0)
--- NOTE | 2016-04-19 05:00 | NUR ---
PT HCT 22. 2 UNITS OF BLOOD TO BE GIVEN. WILL ADMINISTER.
--- NOTE | 2016-04-19 07:30 | NUR ---
PT UP IN CHAIR AT BEDSIDE. TELEVISION ON. PT SLEEPING. UNIT 1 OF 2 OF PRBC RUNNING AT THIS TIME. NO DISTRESS NOTED. CALL LIGHT IN REACH.
--- NOTE | 2016-04-19 08:19 | NUR ---
PT AWAKE AT THIS TIME. RENAL PRACTITIONER IN TO SEE PT. IS TO GO TO GI LAB THIS AM AND HAVE DIALYSIS THIS AFTERNOON. PT UNDERSTANDS PLAN.
[2016-04-19 08:20] LABS: HEMATOCRIT 24.9 % (42.0-54.0); HEMOGLOBIN 8.3 g/dL (13.5-17.5)
--- NOTE | 2016-04-19 09:02 | NUR ---
2ND UNIT OF PRBC STARTED.
--- NOTE | 2016-04-19 09:10 | NUR ---
RECEIVED PT FROM FRANK BAKER AT THIS TIME. UP IN CHAIR WITH SECOND UNIT OF BLOOD TRANSFUSING AND VITAL SIGNS STABLE. CALL LIGHT IN REACH, PT DENIES NEEDS. WILL CONTINUE WITH PLAN OF CARE.
--- NOTE | 2016-04-19 11:30 | NUR ---
BLOOD TRANSFUSION COMPLETE AT THIS TIME. VITAL SIGNS REMAIN STABLE FOR PATIENT. DENIES NEEDS. WILL CONTINUE TO MONITOR.
--- NOTE | 2016-04-19 11:50 | NUR ---
PT TAKEN TO GI LAB AT THIS TIME. WILL MONITOR PT WHEN HE RETURNS TO HIS ROOM.
--- NOTE | 2016-04-19 12:51 | NUR ---
1210 DR. LOVE CAUTERIZED WITH GOLD PROBE 3 CLIPS PUT IN STILL BLEEDING. TALKED TO RADIOLOGY FOR ARTERIOGRAM. ASKED TO DO AN EMERGENT ARTERIOGRAM AND GET CONSENT. NO ANSWER AT NUMBER ON CHART, AND DR. LOVE STATED HE DID NOT HAVE FAMILY TO SIGN HE SIGNED FOR EMERGENT ARTERIOGRAM AND TALKED TO RADIOLOGY. 1225 PATIENT TRANSFERRED TO RADIOLOGY. REPORT TO HERNAN STEWART AND ALSO CALLED [facility] TO REPORT WHERE PATIENT WENT.
[2016-04-19 13:26] LABS: BASOPHILS 1.4 % (0.0-2.0); EOSINOPHILS 5.3 % (0-7); HEMATOCRIT 22.4 % (42.0-54.0); IMMATURE GRANULOCYTES 0.2 % (0-5); LYMPHOCYTES 19.8 % (15-50); MCHC 33.5 g/dL (31.0-37.0); MCV 92.6 fL (80.0-100.0); MEAN PLATELET VOLUME 9.5 fL (7.4-10.4); MONOCYTES 12.6 % (2-11); NEUTROPHILS 60.7 % (40-80); RBC 2.42 10x6/uL (4.20-6.10); RDW 17.9 % (11.5-14.5); WBC 5.1 10x3/uL (4.8-10.8)
[2016-04-19 13:40] LABS: HEMOGLOBIN 7.5 g/dL (13.5-17.5); PLATELET COUNT 129 10x3/uL (130-400)
--- NOTE | 2016-04-19 14:15 | NUR ---
RECEIVED PT BACK TO ROOM 2307 AT THIS TIME. OXYGEN ON 15L VIA FACE MASK. ORAL AIRWAY BLOODY WELL LEFT NARE. ORALLY SUCTIONED AT THIS TIME. HAD MEDIUM AMOUNT OF BLACK, TARRY LOOSE STOOL. BP 202/90 AND HR 84. INCONTINENCE CARE PROVIDED AND RESTRAINT PLACED TO LUE AND RLE. PUNCTURE SITE TO RIGHT GROIN C/D/I WITH NO SIGN OF BLEEDING PRESENT. NURSING STAFF REMAINS AT BEDSIDE.
--- NOTE | 2016-04-19 14:55 | NUR ---
BP 150/51 AND HEART RATE 86 AND NORMAL SR. DIALYSIS INITIATED TO LEFT ARM FISTULA.
--- NOTE | 2016-04-19 15:20 | NUR ---
DIALYSIS SITE INFILTRATION OCCURED AT THIS TIME. SITE DE-ACCESSED AND PRESSURE HELD TO STOP BLEEDING.
--- NOTE | 2016-04-19 15:20 | NUR ---
SITE RE-ACCESSED AT THIS TIME, BUT IMMEDIATE INFILTRATION OCCURED D/T PATIENT MOVING.
--- NOTE | 2016-04-19 15:30 | NUR ---
SITE RE-INITIATED AND DIALYSIS INFUSION STARTED. BP 168/84, HR 79 AND REGULAR, RESPIRATIONS 21 AND OXYGEN SATURATION 99% ON 15L VIA FACE MASK. WILL CONTINUE TO MONITOR PT. BLEEDING TO ORAL AND NASAL CAVATIES HAVE STOPPED. RIGHT LEG REMAINS STRAIGHT WITH NO S/S OF BLEEDING AT PUNCTURE SITE.
[2016-04-19 16:52] LABS: HEMATOCRIT 25.8 % (42.0-54.0); HEMOGLOBIN 8.7 g/dL (13.5-17.5)
--- NOTE | 2016-04-19 17:13 | NUR ---
VITAL SIGNS OBTAINED AND OXYGEN WEANED TO 2L VIA NC AND PT SATURATIONS 97%. ORAL CARE PROVIDED AND DRESSING TO RIGHT GROIN REMAINS WITHOUT SIGNS OF BLEEDING OR BRUISING.
--- NOTE | 2016-04-19 19:10 | NUR ---
ASSESSMENT COMPLETE, PATIENT FINISHING UP DIALYSIS. VSS. SEE ASSESSMENT FLOWSHEET FOR MORE DETIALS.
--- NOTE | 2016-04-19 19:15 | NUR ---
Mr. Bhandari had bedside hemodialysis today via his left upper arm av fistula from 1550 untl 1850. Arrived post op to ICU very confused. Very difficult to cannulate causing a small infiltrate. Recannulated above the infiltrate and was able to dialyze at 350 mls/minute. Removed only fluids given per DR. Merchant. Used zero heparin. Post vital signs were: B/P: 145/82, HR: 85, Temp:97.3, Resps:18.
--- NOTE | 2016-04-19 20:00 | NUR ---
PATIENT HAD BLACK TARRY BM. CLEANED UP AND REPOSITIONED FOR COMFORT.
--- NOTE | 2016-04-19 21:00 | NUR ---
MEDS GIVEN, PATIENT DENIES NEED AT THIS TIME. VSS.
--- NOTE | 2016-04-19 23:10 | NUR ---
REASSESSMENT COMPLETE, SEE FLOWSHEET FOR DETAILS. FISTULA IN LFA, SITE IS C/D/I. PIV IN RIGHT AC THAT IS SL. PIV IN DUDLEY INFUSING PROTONIX @10MLS/HR. PERIPHERAL PULSES +2 BILATERAL IN ALL EXTREMITIES. INCISION SITE ON RIGHT GROIN HAS DRESSING AND IS C/D/I WITH NO HEMATOMA. PATIENT DENIES NEED.
[2016-04-20] VITALS (23 sets, daily range): BP systolic 124–201; BP diastolic 57–845
--- NOTE | 2016-04-20 01:00 | NUR ---
PATIENT RESTING WITH EYES CLOSED. VSS.
[2016-04-20 01:16] LABS: HEMATOCRIT 25.6 % (42.0-54.0); HEMOGLOBIN 8.6 g/dL (13.5-17.5)
--- NOTE | 2016-04-20 03:00 | NUR ---
REASSESSMENT COMPLETE, RIGHT GROIN DRESSING C/D/I, NO HEMATOMA PRESENT.
[2016-04-20 04:49] LABS: BASOPHILS 0.6 % (0.0-2.0); EOSINOPHILS 2.8 % (0-7); HEMATOCRIT 26.3 % (42.0-54.0); HEMOGLOBIN 8.7 g/dL (13.5-17.5); IMMATURE GRANULOCYTES 0.4 % (0-5); LYMPHOCYTES 8.3 % (15-50); MCH 30.5 pg (26.0-34.0); MCHC 33.1 g/dL (31.0-37.0); MCV 92.3 fL (80.0-100.0); MEAN PLATELET VOLUME 9.8 fL (7.4-10.4); MONOCYTES 12.4 % (2-11); NEUTROPHILS 75.5 % (40-80); PLATELET COUNT 131 10x3/uL (130-400); RBC 2.85 10x6/uL (4.20-6.10); RDW 18.4 % (11.5-14.5)
[2016-04-20 04:54] LABS: WBC 6.9 10x3/uL (4.8-10.8)
[2016-04-20 05:13] LABS: ANION GAP 15.6 mmol/L (8-16); CARBON DIOXIDE 26.5 mmol/L (21.0-32.0)
[2016-04-20 05:15] LABS: PHOSPHOROUS 4.5 mg/dL (2.5-4.9); POTASSIUM - SERUM 4.1 mmol/L (3.5-5.1)
[2016-04-20 08:43] LABS: HEMATOCRIT 27.3 % (42.0-54.0)
--- NOTE | 2016-04-20 10:00 | PRO ---
PATIENT:YOHANA VALENCIA MEDICAL RECORD: [id number] : 55 LOCATION:D[facility] D.2307 ADMISSION DATE: 04/14/16 PROCEDURE PERFORMED BY: KWAME ARROYO MD DATE OF PROCEDURE: 04/19/2016 DIRECTOR EMERGENCY SERVICES: Kwame Arroyo MD PROCEDURE: EGD with attempted cauterization for hemorrhage control of a duodenal ulcer. INDICATION: The patient is a 60-year-old white male with a known history of severe peptic ulcer disease who was actually in the hospital a week ago with a duodenal ulcer bleed treated by cauterization with Gold probe. He was discharged to home and a couple days later, he is readmitted with recurrent GI bleeding. Biopsy negative for H. pylori. It is unclear whether he took his PPI at home. Regardless these continued to bleed. He is now for repeat EGD. PREMEDICATION: Taper anesthesia. INSTRUMENT: Olympus video gastroscope. FINDINGS: The endoscope was passed through the oropharynx to the second portion of the duodenum without difficulty. The esophagus was remarkable for some NG trauma and moderate esophagitis, but otherwise negative. There are no obvious varices seen. The stomach was entered and was unremarkable. The duodenum was entered and was remarkable for small ulcer with large visible vessels in the proximal second portion of duodenum seemingly on the posterior wall. This ulcer was barely bleeding initially; however, since I attempted to cauterize it with a Gold probe, there was a marked amount of bleeding causing "red-out." After that I could never see the vessel at all to reattempt cauterization. I therefore tried to place a few Hemoclips in the general area "blindly" without success. I therefore decided to stop the procedure and opted to proceed with an arteriogram with embolization of the gastroduodenal artery. The patient tolerated procedure well without immediate complication. IMPRESSION: Significant bleeding visible vessel in the proximal second portion of the duodenum what I think is the posterior wall associated with fairly small ulceration. Noticed this was not ulcer that would bled last week. Now status post attempted cauterization, but unsuccessful. PLAN: 1. Emergent arteriogram with embolization of the gastroduodenal artery. 2. Surgery consult. TRANSINT:[id number] Voice Confirmation ID: [id number] DOCUMENT ID: [id number] PROCEDURE NOTE [id number] ERIKLOIYOHANAKWAME COCHRAN MD at 1000 CC: WILLIAM MAXWELL MD [id number] DICTATION DATE: 04/19/16 1238 HAND DECORATOR: 04/20/16 0535 ADM IN [place] [id number] [place] [id number]
[2016-04-20 10:12] LABS: HEPATITIS BE ANTIGEN Negative (Negative)
--- NOTE | 2016-04-20 15:00 | NUR ---
NO CHANGE IN ORIGINAL ASSESSMENT. COMPLETE BATH AND LINEN CHANGE COMPLETED.
[2016-04-20 15:51] LABS: HEMATOCRIT 26.9 % (42.0-54.0); HEMOGLOBIN 8.7 g/dL (13.5-17.5)
--- NOTE | 2016-04-20 19:10 | NUR ---
ASSESSMENT COMPLETE. PATIENT ALERT AND ORIENTED. PIV IN UPPER RIGHT ARM INFUSING PROTONIX AT 10MLS/HR. SITE IS WITHOUT REDNESS, DRESSING C/D/I. FISTULA IN LEFT FOREARM. SITE WNL, BRUIT AND THRILL PRESENT. SCD'S REMOVED FOR SKIN ASSESSMENT. PERIPHERAL PULSES +2. INCISION SITE ON RIGHT GROIN IS C/D/I. SEE ASSESSMENT FLOWSHEET FOR DETAILS.
[2016-04-20 20:07] LABS: HBV IU/ML HBV DNA not detected IU/mL (())
[2016-04-21] VITALS (40 sets, daily range): BP systolic 69–1536; BP diastolic 37–117
--- NOTE | 2016-04-21 04:00 | NUR ---
PATIENT UP TO BEDSIDE COMMODE, HAD MAROON COLORED BM. STARTED COMPLAING HE DID NOT FEEL WELL. BP TAKEN AND SHOWED A DROP IN BP. PATIENT RETURNED TO BED WHERE HE BECAME NAUSEATED AND PUKED ABOUT 200CC OF BRIGHT RED BLOOD. STAT H&H ORDERED.
[2016-04-21 04:24] LABS: BASOPHILS 0.8 % (0.0-2.0); EOSINOPHILS 4.1 % (0-7); HEMATOCRIT 24.5 % (42.0-54.0); HEMOGLOBIN 7.8 g/dL (13.5-17.5); IMMATURE GRANULOCYTES 0.3 % (0-5); LYMPHOCYTES 18.7 % (15-50); MCH 30.5 pg (26.0-34.0); MCHC 31.8 g/dL (31.0-37.0); MCV 95.7 fL (80.0-100.0); MEAN PLATELET VOLUME 9.8 fL (7.4-10.4); MONOCYTES 10.5 % (2-11); NEUTROPHILS 65.6 % (40-80); PLATELET COUNT 180 10x3/uL (130-400); RBC 2.56 10x6/uL (4.20-6.10); RDW 19.1 % (11.5-14.5); WBC 11.5 10x3/uL (4.8-10.8)
--- NOTE | 2016-04-21 05:00 | NUR ---
PATIENT REMAINS STABLE. BLOOD STARTED AND DOCTOR IVAN CALLED. ORDERS RECEIVED.
[2016-04-21 05:16] LABS: ALBUMIN 2.4 g/dL (3.4-5.0); ANION GAP 19.3 mmol/L (8-16); BILIRUBIN - TOTAL 0.87 mg/dL (0.2-1.3); CALCIUM 8.9 mg/dL (8.5-10.1); MAGNESIUM - SERUM 1.8 mg/dL (1.8-2.4); PHOSPHOROUS 5.5 mg/dL (2.5-4.9); POTASSIUM - SERUM 4.3 mmol/L (3.5-5.1); PROTEIN - SERUM 4.9 g/dL (6.4-8.2)
[2016-04-21 05:19] LABS: CREATININE - SERUM 6.9 mg/dL (0.6-1.3)
[2016-04-21 08:19] LABS: HEMATOCRIT 23.4 % (42.0-54.0); HEMOGLOBIN 7.9 g/dL (13.5-17.5)
[2016-04-21 08:34] LABS: APTT 32.2 SECONDS (22.8-39.4); INR 1.12 (0.85-1.17); PROTIME 14.3 SECONDS (11.6-15.0)
--- NOTE | 2016-04-21 11:00 | NUR ---
NO CHANGE TO PRIMARY ASSESSMENT, NPO FOR PROCEDURE TO DAY
--- NOTE | 2016-04-21 11:00 | NUR ---
NO CHANGE TO PRIMARY ASSESSMENT
--- NOTE | 2016-04-21 12:26 | NUR ---
GI LAB STAFF IN ROOM WITH DR. LOVE PRESENT, EGD IN PROGRESS. GI STAFF CALLED OUT FOR ASSISTANCE, THE SITUATION WAS ASSESSED BY PRIMARY NURESE AND CODE CALLED, UPON ARRIVAL TO BEDSIDE, PATIENTS PULSE WAS 45 AND DISORGANIZED WITH VERY FAINT PULSE PRESENT, ATROPINE 1MG IVP WAS GIVEN. ER STAFF AND RT STAFF PRESENT, PATIENT WAS INTUBATED VIA ANNESTHESIA. AT 1228 PULSE WAS LOST AND CPR WAS STARTED. CPR CONTINUED UNTIL 1231 WHEN 1MG OF EPI. WAS GIVEN AND A PULSE RESUMED. THIS NURSE CALLED THE LISTED EMERGENCY CONTACT, RENITA GUZMAN, SHE INFORMED NURSE THAT SHE IS NOT LEGALLY TO PATIENT BUT HAS LIVED WITH HIM FOR MORE THAN 8 YEARS, SHE STATES THE PATIENT DOES NOT SPEAK WITH FAMILY AND THEY DO NOT COMMUNICATE WITH EACH OTHER, SHE IS GOING TO ATTEMPT TO CONTACT THE PATIENTS CLOSEST RELATIVE, BAYRON GUZMAN, NURSE DID LOOK IN CONTACTS OF THE PATIENTS PHONE, WITH PERMISSION OF THE GIRLFRIEND, THIS PARTICULAR PERSON IS NOT LISTED IN THE CONTACT LIST. MRS. LARSON STATES MRS. GUZMAN RESIDES IN A [facility]. GI STAFF DID COMPLETE THEIR PROCEDURE AFTER THE PATIENT WAS STABILIZED, PATIENT CURRENTLY REMAINS INTUBATED AND LIGHTLY SEDATED.
[2016-04-21 13:46] LABS: CKMB 2.1 U/L (0.0-3.6); CREATINE KINASE 98 UL (21-232); LDH 363 U/L (85-227)
[2016-04-21 13:47] LABS: TROPONIN-I 0.243 ng/mL (0.000-0.060)
--- NOTE | 2016-04-21 19:00 | NUR ---
LEVOPHED STOPPED. VSS.
[2016-04-21 19:19] LABS: HEMOGLOBIN 6.4 g/dL (13.5-17.5)
[2016-04-21 19:20] LABS: HEMATOCRIT 19.2 % (42.0-54.0)
--- NOTE | 2016-04-21 19:30 | NUR ---
ASSESSMENT COMPLETE. S1S2. PT SEDATED ON VENT. PT INCREASE IN AGIATION WITH DIPRIVAN AT 70MCG/KG/MIN. RR CLEAR BILATERALLY IN UPPER LOBES; DIMINISHED BILATERALLY IN LOWER LOBES. RADIAL AND PEDAL PULSES PALPATED. DRIED BLOODY MUCOUS MEMBRANES. RESERVE LEFT ARM; FISTULA; BRUIT AND THRILL PRESENT.
--- NOTE | 2016-04-21 19:35 | NUR ---
SPOKE WITH DR. KUMAR. ORDERS RECEIVED. PRN ATIVAN. PRN DILAUDID. SEE ORDERS FOR DETAILS.
--- NOTE | 2016-04-21 19:40 | NUR ---
PIV STARTED IN RIGHT UPPER ARM; 20 GAUGE. PATENT. DRESSING APPLIED. 1 ATTEMPT.
--- NOTE | 2016-04-21 20:00 | NUR ---
1 OF 2 PRBC STARTED. HGB 6.4. HCT 19.2. ORDERS FOR 2UNITS IF HCT BELOW 23. VSS.
--- NOTE | 2016-04-21 22:10 | NUR ---
1ST UNIT PRBC STILL INFUSING. VSS. NO DISTRESS NOTED. NO REACTIONS NOTED. WILL CONTINUE TO MONITOR.
--- NOTE | 2016-04-21 22:45 | NUR ---
2 OF 2 PRBC STARTED. VSS. NO DISTRESS NOTED. NO SIGNS OF REACTION. WILL CONTINUE TO MONITOR.
--- NOTE | 2016-04-21 23:15 | NUR ---
REASSESSMENT COMPLETE. NO CHANGES FROM PREVIOUS ASSESSMENT. SEE FLOW SHEET FOR DETAILS.
[2016-04-22] VITALS (25 sets, daily range): BP systolic 133–175; BP diastolic 62–101
--- NOTE | 2016-04-22 01:00 | NUR ---
2ND UNIT OF PRBC COMPLETE. VSS. NO SIGNS OF DISTRESS. WILL CONTINUE TO MONITOR.
--- NOTE | 2016-04-22 03:15 | NUR ---
REASSESSMENT COMPLETE. NO CHANGES FROM PREVIOUS ASSESSMENT. WILL CONTINUE TO MONITOR.
[2016-04-22 03:29] LABS: BASOPHILS 0.4 % (0.0-2.0); EOSINOPHILS 3.6 % (0-7); HEMATOCRIT 26.1 % (42.0-54.0); HEMOGLOBIN 8.5 g/dL (13.5-17.5); IMMATURE GRANULOCYTES 0.4 % (0-5); LYMPHOCYTES 10.3 % (15-50); MCH 29.1 pg (26.0-34.0); MCHC 32.6 g/dL (31.0-37.0); MCV 89.4 fL (80.0-100.0); MONOCYTES 6.8 % (2-11); NEUTROPHILS 78.5 % (40-80); PLATELET COUNT 109 10x3/uL (130-400); RBC 2.92 10x6/uL (4.20-6.10); RDW 16.8 % (11.5-14.5); WBC 9.4 10x3/uL (4.8-10.8)
[2016-04-22 04:00] LABS: ALBUMIN 2.1 g/dL (3.4-5.0); ANION GAP 18.7 mmol/L (8-16); APTT 28.9 SECONDS (22.8-39.4); BILIRUBIN - TOTAL 0.63 mg/dL (0.2-1.3); CALCIUM 8.1 mg/dL (8.5-10.1); CARBON DIOXIDE 21.8 mmol/L (21.0-32.0); CREATININE - SERUM 7.6 mg/dL (0.6-1.3); INR 1.12 (0.85-1.17); POTASSIUM - SERUM 4.5 mmol/L (3.5-5.1); PROTEIN - SERUM 4.2 g/dL (6.4-8.2); PROTIME 14.3 SECONDS (11.6-15.0)
[2016-04-22 04:01] LABS: TROPONIN-I 1.157 ng/mL (0.000-0.060)
--- NOTE | 2016-04-22 05:50 | NUR ---
COMPLETE BED BATH GIVEN. COMPLETE LINEN CHANGE.
[2016-04-22 08:09] LABS: HEMATOCRIT 26.4 % (42.0-54.0); HEMOGLOBIN 8.8 g/dL (13.5-17.5)
--- NOTE | 2016-04-22 08:43 | NUR ---
0830- HD STARTED, VENT SETTINGS CHANGED THIS AM BY RT TO SIMV, DIPROVAN DECREASED TO 30MCG/KG/TX. VSS, AFEBRILE.
--- NOTE | 2016-04-22 09:12 | NUR ---
Nutrition follow-up: Pt is s/p code blue, intubation, NPO at this time. Labs reviewed IVF KVO HD in progress Will need nutrition support started within 24 hours if pt remains intubated. RDN following.
--- NOTE | 2016-04-22 10:58 | NUR ---
HD CONTINUES, PT MADHURI WELL.
--- NOTE | 2016-04-22 12:00 | NUR ---
HD COMPLETE, VSS, AFEBRILE.
--- NOTE | 2016-04-22 12:06 | NUR ---
Mr. Bhandari had bedside hemodialysis today via his right upper arm av fistula from 0835 until 1135. Average blood flow was 350mls/hr. Removed zero net UF per orders. No problems on hemodialysis today. Post vital signs were: B/P: 175/85, HR:75, Temp:98.2, Resps:14.
[2016-04-22 16:36] LABS: HEMATOCRIT 26.8 % (42.0-54.0); HEMOGLOBIN 8.9 g/dL (13.5-17.5)
--- NOTE | 2016-04-22 19:17 | PRO ---
PATIENT:YOHANA VALENCIA MEDICAL RECORD: [id number] : 55 LOCATION:.[facility] D.2307 ADMISSION DATE: 04/14/16 PROCEDURE PERFORMED BY: KWAME ARROYO MD DATE OF PROCEDURE: 04/21/2016 SLIP MAKER: Kwame Arroyo MD. PROCEDURE: EGD with hemoclipping of a bleeding duodenal ulcer. INDICATION: The patient is a 60-year-old white male with end-stage renal disease as well as chronic active hepatitis B and C, and coronary artery disease, basically was admitted with recurrent GI bleeding. He has a known duodenal ulcer with bleed. He had an unsuccessful EGD with cauterization just a couple of days ago. This led to an embolization of his gastroduodenal artery yesterday. Unfortunately, he has re-bled despite all of this and he is now for repeat endoscopy. PREMEDICATION: Taper anesthesia and then general anesthesia afterwards. INSTRUMENT: Olympus video gastroscope. FINDINGS: The endoscope was passed through the oropharynx to the second portion of duodenum without difficulty. The esophagus and stomach had a large amount of blood in it. The duodenum was entered and was remarkable for obvious bleeding from the proximal second portion of duodenum at the first part of the C-loop. There was a lot of edema there and spasm, making it very difficult to visualize the actual pinpoint bleeding site; however, I could tell there was a vessel that was bleeding there. Unfortunately, I had to abort the procedure temporarily because the patient vomited some blood and aspirated. He had respiratory compromised and basically had to be intubated. We actually lost pulse for a few seconds and he had to be coded and given epinephrine. He probably responded back with good pressure and pulse. After he was stabilized, I repeated the endoscopy. This time, I was able to visualize the area a little better and I placed 4 Hemoclips in the general vicinity of this visible vessel with what was seen with good results. There were still quite a bit of fresh blood in the stomach fundus that could be suctioned up because of clots present. The patient did tolerate the procedure well without any immediate complications. However, he is intubated. IMPRESSION: 1. Small bleeding duodenal ulcer in the proximal second portion of duodenum, but with a large visible vessel that did not respond to initial hemoclipping and embolization of his gastroduodenal artery, now status post repeat Hemoclip times 4 with hopefully good results. 2. Large amount of blood in the stomach with probable aspiration of some blood causing us to have to intubate the patient in the middle of the procedure. 3. Has normal esophagogastroduodenoscopy. RECOMMENDATIONS: 1. Follow hematocrit and transfuse as needed. 2. If patient rebleeds, he will need surgery. This case was discussed with Dr. DAVID Bettencourt. TRANSINT:[id number] Voice Confirmation ID: [id number] DOCUMENT ID: [id number] PROCEDURE NOTE [id number] YOHANA VALENCIA, KWAME BULLARD at 1917 CC: [id number] DICTATION DATE: 04/21/16 1408 ROD FINISHER: 04/21/16 2312 ADM IN [facility] [address] [place] [address]
--- NOTE | 2016-04-22 19:30 | NUR ---
ASSESSMENT COMPLETE. S1S2. RR CRACKLES AUDIBLE BILATERALLY IN UPPER LOBES; DIMINISHED BILATERALLY IN LOWER LOBES. RADIAL AND PEDAL PULSES PALPATED. PT SEDATED ON VENT. VENT RATE SET A 14; FTOT RATE OF 14. OGT IN PLACE; AUSCULATED PLACEMENT; NO GASTRIC CONTENT ASPIRATED FROM OGT. ABD SOFT. GENERALIZED BRUISING; SCABS/SORES NOTED. BUTTOCKS REDDENED. VSS.
--- NOTE | 2016-04-22 21:30 | NUR ---
PT SEDATED ON VENT. NO DISTRESS NOTED. VSS. CLOSE OBSERVATION. NO VISUAL ACTIVE BLEEDING NOTED. WILL CONTINUE TO MONITOR.
--- NOTE | 2016-04-22 22:50 | NUR ---
PT UNDRESSED SELF. ATTEMPTED TO GET OUT BED WITHOUT ASSISTANCE. NO CALL LIGHT USED. UNDER CONSTANT SUPERVISION. ASSISTED TO BED SIDE COMMODE. STARTED PULLING AT GROIN DRESSING WHEN ASSISTING PT WITH CLEANING UP BUTTOCKS. REORIENTED; EDUCATED ON IMPORTANCE OF NOT PULLING ON DRESSING.
--- NOTE | 2016-04-22 23:15 | NUR ---
REASSESSMENT COMPLETE. NO CHANGES FROM PREVIOUS ASSESSMENT. WILL CONTINUE TO MONITOR. VSS.
[2016-04-23] VITALS (23 sets, daily range): BP systolic 129–172; BP diastolic 43–87
--- NOTE | 2016-04-23 01:11 | NUR ---
PT HAVING INCREASE IN AGITATION. PRN ATIVAN GIVEN PER ORDERS. SEE EMAR FOR DETAILS.
--- NOTE | 2016-04-23 03:20 | NUR ---
REASSESSMENT COMPLETE. GENERALIZED SWELLING NOTED TO ALL EXTREMITIES. NO OTHER CHANGES AT THIS TIME. SEE FLOW SHEET FOR DETAILS. WILL CONTINUE TO MONITOR.
[2016-04-23 04:20] LABS: HEMATOCRIT 27.1 % (42.0-54.0); HEMOGLOBIN 8.9 g/dL (13.5-17.5)
[2016-04-23 04:37] LABS: ALBUMIN 1.9 g/dL (3.4-5.0); ANION GAP 14.1 mmol/L (8-16); BILIRUBIN - TOTAL 0.58 mg/dL (0.2-1.3); CALCIUM 7.7 mg/dL (8.5-10.1); CARBON DIOXIDE 26.4 mmol/L (21.0-32.0); CREATININE - SERUM 5.1 mg/dL (0.6-1.3); MAGNESIUM - SERUM 1.5 mg/dL (1.8-2.4); PHOSPHOROUS 5.1 mg/dL (2.5-4.9); POTASSIUM - SERUM 3.5 mmol/L (3.5-5.1); PROTEIN - SERUM 4.6 g/dL (6.4-8.2)
--- NOTE | 2016-04-23 07:35 | NUR ---
0730- 96% SPO2, 40% FI02, PEEP5,SIMV 14, RESP RATE 14, PT TURNED AND MOUTH CARE Q2H DONE. PT AWAKENS AND ATTEMPTS TO SIT UP IN BED WHEN STIMULATED. DIPROVAN FOR SEDATION AT 50MCG/KG/MIN.
--- NOTE | 2016-04-23 12:55 | NUR ---
1250-DR VELASQUEZ HERE, DIPROVAN OFF, SIMV CHANGED TO 10 BPM.
--- NOTE | 2016-04-23 14:19 | NUR ---
ventilator changes made by rt, pt now on cpap at 40% fi02, apnea monitors set. 1420-
[2016-04-23 14:47] LABS: HEPATITIS BE ANTIBODY Positive (Negative)
--- NOTE | 2016-04-23 14:56 | NUR ---
1500- pt pulling hard at restraints and attempting to gag the ett out. ativan given. pt then setting off apnea alarms. vent settings changed by rt, placed on simv rate 12.
[2016-04-23 15:44] LABS: HEMATOCRIT 28.7 % (42.0-54.0); HEMOGLOBIN 9.6 g/dL (13.5-17.5)
--- NOTE | 2016-04-23 19:30 | NUR ---
RECEIVED PATIENT IN BED WITH EYES CLOSED SEDATED ON VENT, ASSESSMENT COMPLETED PER FLOWSHEET. PATIENT IS SEDATED ON VENT, PATIENT CAN OBEY COMMANDS AND EYES OPEN TO VOICE. ETT 8.0 @ 23CM NOTED R LIPLINE, OGT SECURED. S1/S2 NOTED WITH PATIENT NSR ON TELMETRY WITH HR 78, RHYTHMIC AND REGULAR. FINE CRACKLES NOTED UPPER LOBES WITH DIMINISHED LUNG SOUNDS LOWER LOBES, VENT SETTINGS R-12 V-600 40% P-5 PS-10. ABDOMEN IS SOFT AND ROUND, BOWEL SOUNDS HYPOACTIVE X4. PATIENT IS ANURIC, NO SWELLING OR REDNESS NOTED IN PELVIC AREA. ALL PULSES PALPABLE WITH SLIGHT WEAKNESS NOTED IN ALL EXTREMITIES. 20G PIV NOTED R AC, PATENT WITH FLUIDS INFUSING. BILATERAL WRIST RESTRAINTS IN USE, REMOVED AND REPLACED FOR ASSESSMENT. ORAL CARE/ SUCTIONING PROVIDED, PATIENT REPOSITIONED FOR COMFORT. NO FURTHER NEEDS AT THIS TIME, ALL VSS AND CARTER CONTINUE TO MONITOR.
--- NOTE | 2016-04-23 21:00 | NUR ---
NO VISITORS AT THIS TIME, PATIENT RESTING IN BED ON VENT WITH EYES CLOSED. PATIENT REPOSITIONED FOR COMFORT, ORAL CARE/SUCTIONING PROVIDED. ALL VSS AND WILL CONTINUE TO MONITOR.
--- NOTE | 2016-04-23 23:15 | NUR ---
REASSESSMENT COMPLETE PER FLOWSHEET, PATIENT RESTING IN BED WITH EYES CLOSED ON VENT. S1/S2 NOTED WITH PATIENT NSR ON TELEMETRY WITH HR 0F 72. FINE CRACKLES NOTED UPPER LOBES WITH DIMINISHED LOWER, OXYGEN SAT 99% ON 40% O2. VENT SETTINGS REMAIN UNCHANGED FROM PREVIOUS ASSESSMENT, ORAL CARE/SUCTIONING PROVIDED. PATIENT REPOSITIONED FOR COMFORT, ALL VSS AND WILL CONTINUE TO MONITOR.
[2016-04-24] VITALS (24 sets, daily range): BP systolic 145–202; BP diastolic 44–90
--- NOTE | 2016-04-24 01:00 | NUR ---
PATIENT RESTING IN BED WITH EYES CLOSED ON VENT, ORAL CARE/SUCTIONING PROVIDED, PATIENT REPOSITIONED FOR COMFORT. ALL VSS AND WILL CONTINUE TO MONITOR.
--- NOTE | 2016-04-24 02:52 | NUR ---
REASSESSMENT COMPLETE PER FLOWSHEET, PATIENT RESTING IN BED WITH EYES CLOSED ON VENT. VENT SETTINGS UNCHANGED FROM PREVIOUS ASSESSMENT, PATIENT OXYGEN SAT 97%. FINE CRACKLES NOTED BILATERAL UPPER WITH DIMINISHED LOWER. PATIENT NSR ON TELEMETRY WITH HR 66, RHYTHMIC AND REGULAR. NO FURTHER NEEDS AT THIS TIME, ALL VSS AND WILL CONTINUE TO MONITOR.
[2016-04-24 04:29] LABS: HEMATOCRIT 31.7 % (42.0-54.0); HEMOGLOBIN 10.1 g/dL (13.5-17.5)
[2016-04-24 04:45] LABS: BILIRUBIN - TOTAL 0.77 mg/dL (0.2-1.3); CALCIUM 8.2 mg/dL (8.5-10.1); CARBON DIOXIDE 23.7 mmol/L (21.0-32.0); CREATININE - SERUM 6.3 mg/dL (0.6-1.3); PROTEIN - SERUM 4.9 g/dL (6.4-8.2)
[2016-04-24 04:46] LABS: ANION GAP 17.4 mmol/L (8-16); POTASSIUM - SERUM 4.1 mmol/L (3.5-5.1)
--- NOTE | 2016-04-24 05:20 | NUR ---
DARK BLOOD NOTED IN OGT, NO DRAW BACK ON RESIDUAL. AWILDA RN NOTIFIED, WILL CONTINUE TO MONITOR AND NOTIFY ONCOMING SHIFT. ALL VSS AND WILL CONTINUE TO MONITOR.
--- NOTE | 2016-04-24 09:41 | NUR ---
Nutrition follow-up: Pt remains intubated Dialysis in progress Labs reviewed Wt: 164# Pt remains NPO; GI bleed resolved at this time Recommend starting Nepro @ 10 ml/hr with gradual increase to goal rate of 50 ml/hr. RDN following.
--- NOTE | 2016-04-24 10:10 | NUR ---
PATIENT PATHWAYS - [facility] Dialysis Fri/Fri/Fri @ 10:00. BMM
--- NOTE | 2016-04-24 12:16 | NUR ---
Mr. Bhandari had bedside hemodialysis via left upper arm av fistula from 0844 until 1145. Average blood flow was 350 mlls/hr. Net fluid removed was 3000 mls. Post vital signs were: B/P: 184/71, Temp: 97.7, Resps: 11 Temp: 97.7.
--- NOTE | 2016-04-24 19:00 | NUR ---
REPORT RECEIVED AND ASSESSMENT COMPLETED. SEE FLOWSHEET FOR FULL DETAILS. VSS. WILL CONTINUE TO MONITOR.
--- NOTE | 2016-04-24 21:00 | NUR ---
2100 MEDS GIVEN. NO CHANGES IN STATUS AT THIS TIME. WILL MONITOR
--- NOTE | 2016-04-24 23:00 | NUR ---
REASSESSMENT COMPLETED. SEE FLOWSHEET. VSS. WILL CONTINUE TO MONITOR.
[2016-04-25] VITALS (14 sets, daily range): BP systolic 134–174; BP diastolic 49–87
--- NOTE | 2016-04-25 01:00 | NUR ---
PT HAD DARK COLORED LIQUID BM. FULL LINEN CHANGE AND BEDBATH GIVEN.
--- NOTE | 2016-04-25 03:00 | NUR ---
REASSESSMENT COMPLETED. SEE FLOWSHEET.
--- NOTE | 2016-04-25 05:15 | NUR ---
PRN MEDS FOR ELEVATED B/P GIVEN. NO OTHER CHANGES AT THIS TIME. VSS. WILL MONITOR
--- NOTE | 2016-04-25 07:00 | NUR ---
PT REPORT REC'D, PT CARE ASSUMED. PT SEDATED ON VENT, VSS. RIGHT AC AND RIGHT UPPER ARM PIV CDI, NO REDDNESS OR SIGNS OF INFECTION, SEE IV FLOW SHEET. GENERALIZED SCRATCHES, BRUISES, AND SCABS/SORES. PT IS ANURIC. SHIFT ASSESMENT COMPLETED, SEE FLOW SHEET. ROOM FREE OF CLUTTER, PT CLOSE TO NURSES STATION, WILL CONTINUE TO MONITOR PT.
[2016-04-25 07:15] LABS: BASOPHILS 0.5 % (0.0-2.0); EOSINOPHILS 3.7 % (0-7); HEMATOCRIT 36.5 % (42.0-54.0); HEMOGLOBIN 12.1 g/dL (13.5-17.5); IMMATURE GRANULOCYTES 0.5 % (0-5); LYMPHOCYTES 6.7 % (15-50); MCH 30.3 pg (26.0-34.0); MCHC 33.2 g/dL (31.0-37.0); MCV 91.5 fL (80.0-100.0); MEAN PLATELET VOLUME 10.9 fL (7.4-10.4); MONOCYTES 8.7 % (2-11); NEUTROPHILS 79.9 % (40-80); PLATELET COUNT 156 10x3/uL (130-400); RBC 3.99 10x6/uL (4.20-6.10); RDW 20.2 % (11.5-14.5); WBC 9.4 10x3/uL (4.8-10.8)
[2016-04-25 07:38] LABS: ALBUMIN 2.3 g/dL (3.4-5.0); ANION GAP 17.9 mmol/L (8-16); BILIRUBIN - TOTAL 0.97 mg/dL (0.2-1.3); CALCIUM 8.5 mg/dL (8.5-10.1); CREATININE - SERUM 5.2 mg/dL (0.6-1.3); MAGNESIUM - SERUM 1.7 mg/dL (1.8-2.4); POTASSIUM - SERUM 3.9 mmol/L (3.5-5.1); PROTEIN - SERUM 5.4 g/dL (6.4-8.2)
--- NOTE | 2016-04-25 08:55 | NUR ---
PT EXTUBATED SELF, SUCTIONED PT, 2LNC APPLIED, VSS. PT ORIENTED TO SETTINGS. ROOM FREE OF CLUTTER, CALL LIGHT IN REACH, WILL CONTINEU TO MONITRO PT.
--- NOTE | 2016-04-25 10:00 | NUR ---
PT RESTING WITH EYES CLOSED, NO C/O PAIN, VSS, WILL CONTINUE TO MONITOR PT.
--- NOTE | 2016-04-25 15:55 | NUR ---
PT TRANSFERRED VIA BED TO CT
--- NOTE | 2016-04-25 19:40 | NUR ---
PT REPORT GIVEN TO YOUSIF MARIE. PT TO [facility]ICA TO ROOM 2134.
--- NOTE | 2016-04-25 20:00 | NUR ---
RECEIVED PT VIA BED TO ROOM 2133. PT IS ALERT AND CONFUSED TO PLACE AND TIME. REORIENTED WITH LITTLE SUCCESS. PT FOUND TO BE INCONT OF STOOL ON ARRIVAL. TAE CARE PROVIDED, SKIN INTACT. BED ALARM SET AND CALL LIGHT PLACED WITHIN REACH. WILL CONT TO MONITOR.
--- NOTE | 2016-04-25 21:23 | NUR ---
PT YELLING OUT, "I WANT TO GO HOME". PT UNABLE TO REDIRECT. ATTEMPTING TO CLIMB OOB. BED ALARM SET AND PT MEDICATED WITH LORAZEPAM 1 MG IV AT THIS TIME FOR AGITATED STATE. PT REFUSING TO WEAR TELEMETRY AND CONTINUES TO PULL HEART MONITOR OFF. WILL CONT TO MONITOR FREQ FOR SAFETY AND NEEDS.
--- NOTE | 2016-04-26 | NUR ---
PT CONT TO BE AGITATED, ATIVAN 1 MG IV GIVEN. WILL CONT TO MONITOR.
[2016-04-26 00:24] VITALS: BP 121/62
--- NOTE | 2016-04-26 00:41 | NUR ---
PT TURNED ON OVER TO LEFT SIDE INDEP AND SLEEPING NOW. NO FURTHER AGITATION AT THIS TIME NOTED. WILL CONT TO MONITOR.
[2016-04-26 04:23] VITALS: BP 150/75
[2016-04-26 06:36] LABS: ALBUMIN 2.3 g/dL (3.4-5.0); ANION GAP 22.2 mmol/L (8-16); BILIRUBIN - TOTAL 0.85 mg/dL (0.2-1.3); CALCIUM 8.4 mg/dL (8.5-10.1); CARBON DIOXIDE 22.6 mmol/L (21.0-32.0); POTASSIUM - SERUM 3.8 mmol/L (3.5-5.1); PROTEIN - SERUM 5.2 g/dL (6.4-8.2)
[2016-04-26 06:37] LABS: CREATININE - SERUM 6.8 mg/dL (0.6-1.3)
--- NOTE | 2016-04-26 07:26 | NUR ---
PT SITTING UP IN BED ANXIOUS. YELLING OUT. SCREAMING.
[2016-04-26 07:27] LABS: HEP B CORE AB TOTAL Positive (Negative)
--- NOTE | 2016-04-26 08:47 | EC ---
PATIENT:YOHANA VALENCIA DATE OF SERVICE: 04/14/16 SEX: M MEDICAL RECORD: [id number] DATE OF : [birth year] LOCATION:D.M2 D.213 AGE OF PATIENT: 60 ADMISSION DATE: 04/14/16 REFERRING PHYSICIAN: INTERPRETING PHYSICIAN: YOHANA BURNS MD ECHOCARDIOGRAM REPORT ECHO CHARGES 4 ECHO COMPLETE CLINICAL DIAGNOSIS: CHF ECHOCARDIOGRAPHIC MEASUREMENTS (adult normal given) AC root (d.<3.7cm) 2.7 LV Septum d (<1.2 cm> 1.6 Valve Excursion 1.5 LV Septum (systole) 2.3 Left Atria (s.<4.0cm> 5.2 LVPW d(<1.2cm) 1.5 RV (d.<2.3cm) 2.9 LVPW (sytole) 2.1 LV diastole(<5.6CM) 5.9 MV E-F(>70mm/sec) LV systole 3.8 LVOT Diameter 1.8 MV exc.(>10mm) Est.ejection fraction (50-75%) Pericardial Effusion N DOPPLER: LVIT A 203 E 225 LA RVSP 57.0 LVOT 123 AOP1/2T Asc. Ao 383 RVOT 90.0 RA PA 172 AV Gradient Peak 59.0 AV Mean 34.0 AV Area 0.8 MV Gradient Peak 20.0 MV Mean 8.4 MV Area COMMENTS: Director Design: John PETERSONOE Car Tracer:1 Dr. Burns TAPE# PACS DATE OF SERVICE: 04/22/2016 Echocardiogram FINDINGS: 1. Left ventricular chamber size is mildly dilated. Left ventricular systolic function is moderately reduced, overall ejection fraction 30%. 2. Left atrium is enlarged at 5.2 cm. Right atrium and right ventricular chamber sizes are as well moderately enlarged. 3. Valvular structures: Aortic valve demonstrates moderate calcific aortic ECHOCARDIOGRAM REPORT [id number] YOHANA VALENCIA stenosis. Valve area calculates at 0.8 cm-squared and there is gradient of 59 mm across the valve. The remaining valvular structures have normal structure and motion. 4. Doppler interrogation elsewise reveals moderate tricuspid regurgitation, no other valvular insufficiency or stenosis. Pulmonary systolic pressure; however, is elevated estimated at 57 mmHg. 5. No evidence of pericardial effusion or left ventricular thrombus. TRANSINT:[id number] Voice Confirmation ID: [id number] DOCUMENT ID: [id number] YOHANA BURNS MD at 0847 CC: [id number] DICTATION DATE: 04/22/16 1553 LAUNDRY TECH: 04/23/16 0052 ADM IN [place] [id number] [place] [id number]
[2016-04-26 08:49] VITALS: BP 187/89
[2016-04-26 12:43] VITALS: BP 205/88
[2016-04-26 17:19] VITALS: BP 135/105
--- NOTE | 2016-04-26 17:39 | NUR ---
PT SITTING UP IN BED, DENIES NEEDS EATING DINNER WILL CONT TO MONITOR.
[2016-04-26 21:08] VITALS: BP 138/75
--- NOTE | 2016-04-26 21:40 | NUR ---
PT ASKED FOR BED ALARM TO BE TURNED OFF, INFORMED PT THAT HE WAS A FALL RISK AND HOSPITAL POLICY STATES THAT ANY PT THAT IS CONSIDERED A FALL RISK MUST HAVE A BED ALARM ON, UNLESS THEY SIGN A WAIVER AND TAKE FULL RESPONSIBILITY FOR THEIR OWN ACTIONS. PT ASKED FOR THE WAIVER, WAIVER SIGNED, WITTNESSED AND PLACED IN CHART.
--- NOTE | 2016-04-27 00:02 | NUR ---
NO CHANGES NOTED IN ASSESSMENT. NO NEEDS VOICED. CALL LIGHT WITHIN REACH. WILL CONT TO MONITOR.
[2016-04-27 00:07] VITALS: BP 130/58
--- NOTE | 2016-04-27 00:54 | NUR ---
RESTING WITH EYES CLOSED, RESPERATIONS EVEN, NO S/S DISTRESS NOTED.
--- NOTE | 2016-04-27 02:45 | NUR ---
PT C/O GGENERALIZED PAIN, STATES THAT HIS BACK AND SHOULDERS AND NECK HURTS, ASKING FOR A PAIN SHOT. INFORMED PT THAT NOTHING FOR PAIN WAS ORDERED AT THIS TIME BUT I WILL PLACE A CALL TO SEE IF HE CAN HAVE SOMETHING ORDERED. CALL OUT TO LIU KIRKLAND APN STEAM HAND WITH DR BORRERO.
[2016-04-27 04:15] VITALS: BP 151/69
[2016-04-27 07:05] LABS: ALBUMIN 2.3 g/dL (3.4-5.0); ANION GAP 16.8 mmol/L (8-16); BILIRUBIN - TOTAL 0.69 mg/dL (0.2-1.3); CALCIUM 8.2 mg/dL (8.5-10.1); CARBON DIOXIDE 27.1 mmol/L (21.0-32.0); CREATININE - SERUM 5.8 mg/dL (0.6-1.3); MAGNESIUM - SERUM 1.8 mg/dL (1.8-2.4); PHOSPHOROUS 5.5 mg/dL (2.5-4.9); PROTEIN - SERUM 5.6 g/dL (6.4-8.2)
[2016-04-27 07:07] LABS: POTASSIUM - SERUM 2.9 mmol/L (3.5-5.1)
--- NOTE | 2016-04-27 07:55 | NUR ---
AM ROUNDING- PT SITTING UP ON SIDE OF THE BED. ALERT AND ORIENTED. PER REPORT FROM FACILITIES ASSISTANT NURSE BLANQUITA, PT REFUSES SCDS, HEART MONITOR, AND BED ALARM (WAIVER SIGNED AND IN CHART). ON ROOM AIR. TWO IVS SEEN TO RIGHT FOREARM. ONE IV RUNNING NS AT 10CC AND THE OTHER IV RUNNING PROTONIX AT 10CC. RESERVE LEFT ARM FOR AVF, PT DIALYZES ON M, W, AND F. NO NEED AT CURRENT TIME. WILL CONTINUE TO MONITOR. 0750- PAGED SHANTE KIRKLAND APN TO INFORM HER OF PTS POTASSIUM (2.9). JENNIFER FREY STATED SHE WOULD BE HERE SOON TO PUT IN NEW ORDERS. NO NEW ORDERS RECEIVED. WILL CONTINUE TO MONITOR AND AWAIT NEW ORDERS WHEN JENNIFER FREY GETS ON UNIT.
[2016-04-27 08:06] VITALS: BP 174/76
[2016-04-27 11:15] LABS: BASOPHILS 0.7 % (0.0-2.0); EOSINOPHILS 4.5 % (0-7); HEMATOCRIT 30.5 % (42.0-54.0); HEMOGLOBIN 9.9 g/dL (13.5-17.5); IMMATURE GRANULOCYTES 0.4 % (0-5); LYMPHOCYTES 9.4 % (15-50); MCH 30.6 pg (26.0-34.0); MCHC 32.5 g/dL (31.0-37.0); MEAN PLATELET VOLUME 9.9 fL (7.4-10.4); MONOCYTES 14.1 % (2-11); NEUTROPHILS 70.9 % (40-80); PLATELET COUNT 183 10x3/uL (130-400); RBC 3.24 10x6/uL (4.20-6.10); RDW 20.5 % (11.5-14.5); WBC 8.1 10x3/uL (4.8-10.8)
[2016-04-27 11:17] LABS: MCV 94.1 fL (80.0-100.0)
[2016-04-27 11:55] VITALS: BP 169/103
--- NOTE | 2016-04-27 12:13 | NUR ---
PT YELLED AT ME FROM IN THE [place] AND INFORMED ME THAT ONE OF HIS IVS TO RIGHT FOREARM CAME OUT. PLACED 2X2 GAUZE PADS OVER IV SITE AND SECURED WITH TAPE. IV CATHETER WITH CATH TIP INTACT THROWN AWAY IN SHARPS. PT HAS ANOTHER IV CATHETER TO RIGHT FOREARM THAT I RESTARTED IV FLUIDS AND ANTIBIOTICS. WILL CONTINUE TO MONITOR.
--- NOTE | 2016-04-27 14:30 | NUR ---
1030- SHANTE KIRKLAND APN ON UNIT. INFORMED HER OF PTS BLOOD PRESSURE THIS AM. AWAITING NEW ORDERS.
--- NOTE | 2016-04-27 14:30 | NUR ---
PT IS CURRENTLY IN SHOWER. DANNY NARANJO IS IN ROOM CHANGING LINEN AT THIS TIME STAYING NEARBY. WILL CONTINUE TO MONITOR.
[2016-04-27 15:03] VITALS: BP 176/99
--- NOTE | 2016-04-27 17:43 | NUR ---
PT CURRENTLY WALKING UP TO NURSES STATION TO TELL ME ALEKSANDERGEOFFREY FOR ORDERING HIM A SECOND TRAY REQUESTED. NO NEED AT CURRENT TIME. WILL CONTINUE TO MONITOR.
[2016-04-27 18:07] LABS: HCVGENO - HEP C QUANT HCV Not Detected IU/mL (())
--- NOTE | 2016-04-27 20:57 | NUR ---
HS MEDS GIVEN, LABETALOL 10 MG GIVEN IV FOR ELEVATED BP OF 189/94. WILL CONT TO MONITOR.
[2016-04-27 21:26] VITALS: BP 189/94
[2016-04-28 00:30] VITALS: BP 178/84
--- NOTE | 2016-04-28 00:54 | NUR ---
PLASTICS WORKER AT BEDSIDE FOR VS. NEEDS ADDRESSED, CALL LIGHT IN REACH. WILL CONT TO MONITOR.
--- NOTE | 2016-04-28 03:34 | NUR ---
PT AMBULATING IN [place] AROUND NURSES STATION.
[2016-04-28 04:30] VITALS: BP 173/65
[2016-04-28 06:22] LABS: BASOPHILS 0.9 % (0.0-2.0); EOSINOPHILS 7.6 % (0-7); HEMATOCRIT 29.2 % (42.0-54.0); HEMOGLOBIN 9.1 g/dL (13.5-17.5); IMMATURE GRANULOCYTES 0.5 % (0-5); LYMPHOCYTES 9.3 % (15-50); MCH 29.4 pg (26.0-34.0); MCHC 31.2 g/dL (31.0-37.0); MCV 94.5 fL (80.0-100.0); MEAN PLATELET VOLUME 9.9 fL (7.4-10.4); MONOCYTES 13.6 % (2-11); NEUTROPHILS 68.1 % (40-80); PLATELET COUNT 192 10x3/uL (130-400); RBC 3.09 10x6/uL (4.20-6.10); WBC 7.9 10x3/uL (4.8-10.8)
[2016-04-28 06:45] LABS: ALBUMIN 2.1 g/dL (3.4-5.0); ANION GAP 18.3 mmol/L (8-16); BILIRUBIN - TOTAL 0.58 mg/dL (0.2-1.3); CALCIUM 8.4 mg/dL (8.5-10.1); POTASSIUM - SERUM 3.3 mmol/L (3.5-5.1); PROTEIN - SERUM 5.4 g/dL (6.4-8.2)
[2016-04-28 06:49] LABS: CREATININE - SERUM 7.5 mg/dL (0.6-1.3)
[2016-04-28 08:13] VITALS: BP 171/75
[2016-04-28 12:43] VITALS: BP 174/98
[2016-04-28 13:07] LABS: HEMATOCRIT 32.1 % (42.0-54.0); HEMOGLOBIN 10.6 g/dL (13.5-17.5)
--- NOTE | 2016-04-28 13:30 | NUR ---
ALERT AND ORIENTED X4. AMBULATING IN [place]. ASKING LAMP SHADE SEWER FOR DC ORDERS. EXPLAIN PLAN OF CARE TO TRANSFUSE 1 UNIT OF PRBC AND RECHECK IN AM. IF HGB LOW TRANSFUSE 1 UNIT DURING DIALYSIS. EXPRESSES CONCERNS WITH LOSING HOUSE IF NOT DISCHARGED. REQUEST TO BE CALLED. PAGE . CONTINUE PLAN OF CARE AND SAFETY PRECAUTIONS.
[2016-04-28 16:00] VITALS: BP 153/76
--- NOTE | 2016-04-28 16:05 | NUR ---
ALERT AND ORIENTED X4. SITTING IN BED. INITIATE 1 UNIT PRBC TRANSFUSION RT UPPER ARM IV. BP-153/76, P-79, R-16, T-98.6 ORAL. REMAIN IN ROOM FIRST 15MINS TO MONITOR FOR REACTION. DENIES SOB OR PAIN. CONTINUE PLAN OF CARE. TRANSFUSION STARTED AT 75mL/HR. BED LOCKED AND LOW. CALL LIGHT IN REACH. TWO SIDERAILS UP.
--- NOTE | 2016-04-28 16:20 | NUR ---
ALERT AND ORIENTED X4. RESTING IN BED. BP-168/82, P-81, R-16, T-98.7. DENIES ANY ITCHING OR ANY SIGNS OF REACTION. INCREASE TRANSFUSION RATE TO 120mL/HR. CONTINUE PLAN OF CARE AND SAFETY PRECAUTIONS.
--- NOTE | 2016-04-28 18:03 | NUR ---
LABETALOL 10MG IV GIVEN FOR BP 194/102.
--- NOTE | 2016-04-28 19:52 | NUR ---
RESUMED CARE OF PT, LYING IN BED RESPIRAITONS EVEN AND UNLABORED ON ROOM AIR. BLOOD TRANSFUSION FINISHING UP, SWITCHED TUBING OVER TO SALINE. CALL LIGHT IN REACH. WILL CONTINUE TO MONITOR. SEE NURSE ASSESSMENT.
[2016-04-28 19:59] LABS: HEMATOCRIT 31.9 % (42.0-54.0); HEMOGLOBIN 10.6 g/dL (13.5-17.5)
--- NOTE | 2016-04-28 20:24 | NUR ---
TRANSFUSION COMPLETE, SALINE LOCKED. NIGHT MEDS GIVEN.
[2016-04-28 21:24] VITALS: BP 187/84
--- NOTE | 2016-04-28 21:32 | NUR ---
vLate Entry 1230 Arelis Gar APN, spoke with TRACIE. Patient was wanting to go home today. He was very concerned about losing his house to his fiance'. Patient's H/H has been decreasing and he had two recent admits for active GI Bleed. He was concerned about transportation. He was awaiting DR Hensley's visit. He was considering leaving AMA. CM spoke w/ patient in his room for 25 minutes. Explained he would be placing himself at great risk. Explained case management could not assist w/ transportation if he left AMA. He did consent to stay. Lab was drawn for T/C for PRBCS. DR Hensley spoke w/ patient on rounds. He advised the same as above. CM to follow to assist as is appropriate
--- NOTE | 2016-04-28 21:49 | NUR ---
BM NOTED, NO SAMANTA BLOOD AT THIS TIME.
--- NOTE | 2016-04-29 00:13 | NUR ---
REFUED UPDRAFT AT THIS TIME.
[2016-04-29 00:30] VITALS: BP 126/63
--- NOTE | 2016-04-29 01:34 | NUR ---
SOLDER LEVELER PRINTED CIRCUIT BOARDS AT BEDSIDE TO OBTAIN VITALS, CALL LIGHT IN REACH. WILL CONTINUE WITH PLAN OF CARE.
[2016-04-29 04:30] VITALS: BP 134/70
[2016-04-29 05:05] LABS: BASOPHILS 0.6 % (0.0-2.0); EOSINOPHILS 5.7 % (0-7); HEMATOCRIT 36.9 % (42.0-54.0); HEMOGLOBIN 11.7 g/dL (13.5-17.5); IMMATURE GRANULOCYTES 0.3 % (0-5); LYMPHOCYTES 9.2 % (15-50); MCH 29.8 pg (26.0-34.0); MCHC 31.7 g/dL (31.0-37.0); MCV 94.1 fL (80.0-100.0); MEAN PLATELET VOLUME 9.8 fL (7.4-10.4); MONOCYTES 9.1 % (2-11); NEUTROPHILS 75.1 % (40-80); PLATELET COUNT 219 10x3/uL (130-400); RBC 3.92 10x6/uL (4.20-6.10); RDW 20.6 % (11.5-14.5); WBC 12.4 10x3/uL (4.8-10.8)
[2016-04-29 05:24] LABS: % SATURATION 110 % (15-55); IRON 208 ug/dl (35-150); TOTAL IRON BIND CAPACITY 189 ug/dl (260-445)
[2016-04-29 05:35] LABS: ALBUMIN 2.6 g/dL (3.4-5.0); ANION GAP 21.3 mmol/L (8-16); BILIRUBIN - TOTAL 0.88 mg/dL (0.2-1.3); CARBON DIOXIDE 24.5 mmol/L (21.0-32.0); CREATININE - SERUM 8.5 mg/dL (0.6-1.3); MAGNESIUM - SERUM 1.9 mg/dL (1.8-2.4); PHOSPHOROUS 6.7 mg/dL (2.5-4.9); POTASSIUM - SERUM 3.8 mmol/L (3.5-5.1); PROTEIN - SERUM 6.6 g/dL (6.4-8.2)
--- NOTE | 2016-04-29 06:44 | NUR ---
UP IN SHOWER, NO CHANGES FROM PREVIOUS ASSESSMENT.
[2016-04-29 08:32] VITALS: BP 164/97
--- NOTE | 2016-04-29 09:47 | NUR ---
Patient Name: YOHANA VALENCIA Encounter No: [id number] : 1955 Primary Insurance: MEDICARE A & B Anticipated DC Date: Planned Disposition: Home DCP follow-up note: CM RECEIVED TELEPHONE CALL FROM PT IN ROOM; PT REPORTS HE IS TRYING TO CALL THE DOCTOR OR HIS NURSE TO GET DISCHARGED HOME. PT DENIES DISCHARGE NEEDS. AFTER LENGHTHY CONVERSATION, PT THEN REPORTS THAT CM WILL NEED TO ASSIST HIM IN TRANSPORTATION HOME. CM EXPLAINED THAT CM WILL CALL [facility] [employer] ([employer] [facility]) FOR TRANSPORATION WHEN THE DOCTOR IS READY TO DISCHARGE PT HOME AND TRANSPORT WILL DEPEND UPON AVAILABILITY OF [employer] [facility]. CM TO FOLLOW AND ASSIST NEEDED. Daniel Snow, CASE MANAGEMENT
[2016-04-29 12:30] VITALS: BP 176/89
[2016-04-29 12:51] LABS: HEMATOCRIT 35.3 % (42.0-54.0); HEMOGLOBIN 11.2 g/dL (13.5-17.5)
[2016-04-29] MEDS ORDERED: PROTONIX40 MG PO (14:03)
--- NOTE | 2016-04-29 15:29 | NUR ---
Patient Name: YOHANA VALENCIA Encounter No: [id number] : 1955 Primary Insurance: MEDICARE A & B Anticipated DC Date: 04-29-2016 Planned Disposition: Home DCP follow-up note: CM RECEIVED DISCHARGE ORDER AND REQUEST TO SEE PT AT NURSES STATION. PT HAD CALLED [facility] ([employer] [facility]SP[facility]) AND ASKED CM TO SPEAK TO PER[facility] WHO REPORTED THAT SHE WILL TRY TO [facility] FOR PT TODAY AFTER 3PM. CM RECEIVED CALL FROM PERCY OF [employer] WHO REPORTED THAT IT WAS TOO LATE, THE OFFSHORE W[employer] OPERATIONS MANAGER IN [place] HAD PASSED [email or web address] AND WAS ALMOST TO [place]. CM NOTIFIED PT WHO ASKED FOR [facility] TRANSPORT TO BE PROVIDED BY THE [facility]. CM OFFERED TO ARRANGE [employer] BUS FOR TOMORROW AND ARRANGE HOUSING TONIGHT AT [facility]. PT DECLINED AND REPORTS HE WILL CALL FAMILY TO PICK HIM UP. CM LATER SPOKE TO PT IN ROOM, PT CONTINUES TO REFUSE TO STAY FOR DIALYSIS TODAY AT THE HOSPITAL AND FOR CM TO [facility]ANGE [employer] [facility] FOR TOMORROW, OR TO STAY AT [facility]. PT REPORTS HIS SISTER IN LAW IS PICKING HIM UP BUT WANTS $50 IN [place] FOR GAS. PT ASKED CM FOR $50. CM DECLINED PT AND AGAIN OFFERED DIALYSIS HERE AND TRANSPORT TOMORROW OR TO ASSIST IN GETTING A BED AT [facility] AND [employer] TOMORROW. PT REFUSED AND REPORTS HE IS JUST WANTING TO GO HOME. CM PROVIDED INFORMATION TO [facility], PT REPORTS KNOWING WHERE [facility] IS HE HAS USED THEIR SERVICES IN THE PAST. PT DENIES FURTHER NEEDS FROM CM. Daniel Snow, CASE MANAGEMENT
--- NOTE | 2016-04-29 17:10 | NUR ---
ALERT AND ORIENTED X4. DISCHARGE INSTRUCTIONS GIVEN VERBALLY AND WRITTEN. DISCHARGE PAPERS SIGNED ON CHART. NO IV. ESCORT TO RIDE VIA WHEELCHAIR. REMAINS FREE FROM INJURY.
== END 2016-04-29 17:12 | disposition home or self-care (01) | DRG 356 ==
LOC: D.M2 09:35 → D.ICU 11:57 → D.M2 04-25 19:58
PROVIDERS: Internal Medicine; Internal Medicine Gastroenterology; Internal Medicine Nephrology; Internal Medicine Pulmonary Disease; Radiology Diagnostic Radiology; Surgery; ADMIT Internal Medicine Nephrology
PROC: 5A1D60Z (ICD-10-PCS; principal; 2016-04-17)
PROC: 0D9670Z Drainage of Stomach with Drainage Device, Via Natural or Artificial Opening (ICD-10-PCS; principal; 2016-04-17)
PROC: 0D598ZZ Destruction of Duodenum, Via Natural or Artificial Opening Endoscopic (ICD-10-PCS; 2016-04-19)
PROC: 04L33DZ Occlusion of Hepatic Artery with Intraluminal Device, Percutaneous Approach (ICD-10-PCS; 2016-04-19)
PROC: B4141ZZ Fluoroscopy of Superior Mesenteric Artery using Low Osmolar Contrast (ICD-10-PCS; 2016-04-19)
PROC: 0W3P8ZZ Control Bleeding in Gastrointestinal Tract, Via Natural or Artificial Opening Endoscopic (ICD-10-PCS; 2016-04-21)
PROC: 5A12012 Performance of Cardiac Output, Single, Manual (ICD-10-PCS; 2016-04-21)
PROC: 0BH17EZ Insertion of Endotracheal Airway into Trachea, Via Natural or Artificial Opening (ICD-10-PCS; 2016-04-21)
PROC: 5A1945Z Respiratory Ventilation, 24-96 Consecutive Hours (ICD-10-PCS; 2016-04-21)
DX: K26.4 Chronic or unspecified duodenal ulcer with hemorrhage (principal); N18.6 End stage renal disease; J95.821 Acute postprocedural respiratory failure; J69.0 Pneumonitis due to inhalation of food and vomit; I13.2 Hypertensive heart and chronic kidney disease with heart failure and with stage 5 chronic kidney disease, or end stage renal disease; I50.22 Chronic systolic (congestive) heart failure; D62 Acute posthemorrhagic anemia; E44.0 Moderate protein-calorie malnutrition; D50.0 Iron deficiency anemia secondary to blood loss (chronic); K25.4 Chronic or unspecified gastric ulcer with hemorrhage; K73.2 Chronic active hepatitis, not elsewhere classified; I35.1 Nonrheumatic aortic (valve) insufficiency; D50.9 Iron deficiency anemia, unspecified; D63.1 Anemia in chronic kidney disease; Z99.2 Dependence on renal dialysis; I25.10 Atherosclerotic heart disease of native coronary artery without angina pectoris; J44.9 Chronic obstructive pulmonary disease, unspecified; Y83.8 Other surgical procedures as the cause of abnormal reaction of the patient, or of later complication, without mention of misadventure at the time of the procedure; E03.9 Hypothyroidism, unspecified; I95.9 Hypotension, unspecified; E87.5 Hyperkalemia; I07.1 Rheumatic tricuspid insufficiency; Z86.73 Personal history of transient ischemic attack (TIA), and cerebral infarction without residual deficits; Z95.2 Presence of prosthetic heart valve; Z72.0 Tobacco use; D69.6 Thrombocytopenia, unspecified